=== PATIENT | male | born 1950 | race Caucasian/White ===

== ENCOUNTER → 2021-09-20 14:30 | Outpatient (BNVA) | payer SELFPAY | PROVIDERS: PCP Nurse Practitioner Family; Visit Provider Internal Medicine Cardiovascular Disease | DX: N18.9 Chronic kidney disease, unspecified (principal); I48.91 Unspecified atrial fibrillation; I50.33 Acute on chronic diastolic (congestive) heart failure; R53.1 Weakness; Z79.01 Long term (current) use of anticoagulants | CPT/HCPCS: 80053; 83880; 84443; 85025; 85610 ==

== ENCOUNTER → 2021-09-27 15:01 | Outpatient (BNVA) | payer SELFPAY | PROVIDERS: Visit Provider Internal Medicine Cardiovascular Disease | DX: I48.91 Unspecified atrial fibrillation (principal) | CPT/HCPCS: 85610 ==

== ENCOUNTER → 2021-10-18 11:01 | Outpatient (BNVA) | payer SELFPAY | PROVIDERS: Visit Provider Internal Medicine Cardiovascular Disease | DX: I48.91 Unspecified atrial fibrillation (principal) | CPT/HCPCS: 85610 ==

== ENCOUNTER → 2021-10-31 11:09 | Outpatient (BNVA) | payer SELFPAY | PROVIDERS: Visit Provider Internal Medicine Cardiovascular Disease | DX: I48.91 Unspecified atrial fibrillation (principal) | CPT/HCPCS: 85610 ==

== ENCOUNTER 2021-12-19 12:58 | Outpatient (CLI) | payer SELFPAY ==
[2021-12-19 13:27] LABS: Basophils % 0.1 %; Eosinophils # 0.1 10^3/uL (0.0-0.8); Eosinophils % 1.2 %; Hematocrit 48.2 % (42.0-52.0); Hemoglobin 16.5 g/dL (11.7-16.6); Lymphocytes # 1.9 10^3/uL (0.8-4.8); Lymphocytes % 28.4 %; Mean Corpuscular HGB Conc 34.2 g/dL (30.0-36.0); Mean Corpuscular Hemoglobin 30.4 pg (28.0-34.0); Mean Corpuscular Volume 88.8 fl (80-94); Mean Platelet Volume 10.8 fL (7.4-10.4); Monocytes # 0.8 10^3/uL (0.2-0.9); Monocytes % 11.7 %; Neutrophils # 3.95 10^3/uL (1.8-7.7); Neutrophils % 58.3 %; Nucleated Red Blood Cells % 0 %; Platelet Count 187 10^3/cmm (130-400); Red Blood Count 5.43 10^6/uL (4.1-5.3); Red Cell Distribution Width 13.3 % (12.1-15.1); White Blood Count 6.8 10^3/uL (4.0-10.0)
[2021-12-19 13:58] LABS: INR 2.56 (0.8-1.2)
[2021-12-19 14:10] LABS: Alanine Aminotransferase 24 U/L (0-41); Albumin Level 4.6 g/dL (3.5-5.2); Alkaline Phosphatase 83 IU/L (40-130); Aspartate Amino Transferase 23 U/L (0-40); Blood Urea Nitrogen 13 mg/dL (8-23); Calcium 9.6 mg/dL (8.5-10.5); Carbon Dioxide 24 mmol/L (22-29); Chloride 98 mmol/L (98-107); Chol HDL Ratio 3.74 mg/dL (1.0-5.00); Cholesterol 217 mg/dL (0-200); Globulin 3.4 g/dL (1.3-4.6); Glomerular Filtration Rate 111.5 mL/min (90-130); Glucose 100 mg/dL (65-115); HDL Cholesterol 58 mg/dL (60-100); LDL Cholesterol Calculated 129 mg/dL (50-129); LDL HDL Ratio 2.22 RATIO (0.00-3.22); Magnesium 1.9 mg/dL (1.7-2.3); Osmolality Calculated 278 mOsm/kg (285-295); Sodium 134 mmol/L (136-145); Total Bilirubin 0.8 mg/dL (0.15-1.2); Triglycerides 151 mg/dL (0-150)
[2021-12-19 14:11] LABS: Anion Gap 16.2 (5-19); Potassium 4.2 mmol/L (3.5-5.1)
[2021-12-19 14:20] LABS: NT Pro B Type Natriuretic Pept 45 pg/mL (0-125)
[2021-12-19 14:30] LABS: Digoxin 0.3 ng/mL (0.6-1.2); Troponin T (5th) Once 16 ng/L (0-15)
== END 2021-12-19 12:59 | disposition home or self-care (01) ==
LOC: LAB 13:00
PROVIDERS: Visit Provider Internal Medicine Cardiovascular Disease
DX: I48.91 Unspecified atrial fibrillation (principal); R06.02 Shortness of breath; R60.9 Edema, unspecified
CPT/HCPCS: 80053; 80061; 80162; 83735; 83880; 84484; 85025; 85610

== ENCOUNTER 2022-01-16 09:26 | Outpatient (CLI) | payer SELFPAY | END 2022-01-16 09:27 | disposition home or self-care (01) | LOC: LAB 09:28 | PROVIDERS: PCP Nurse Practitioner; Visit Provider Internal Medicine Cardiovascular Disease | DX: I48.91 Unspecified atrial fibrillation (principal); Z79.01 Long term (current) use of anticoagulants | CPT/HCPCS: 85610 ==

== ENCOUNTER → 2022-02-26 13:28 | Outpatient (BNVA) | payer SELFPAY | PROVIDERS: PCP Nurse Practitioner; Visit Provider Nurse Practitioner | DX: I48.91 Unspecified atrial fibrillation (principal) | CPT/HCPCS: 85610 ==

== ENCOUNTER → 2022-03-20 14:40 | Outpatient (BNVA) | payer MEDICAID, SELFPAY | PROVIDERS: PCP Nurse Practitioner; Visit Provider Nurse Practitioner | DX: I48.91 Unspecified atrial fibrillation (principal); Z79.01 Long term (current) use of anticoagulants | CPT/HCPCS: 85610 ==

== ENCOUNTER → 2022-03-27 13:05 | Outpatient (BNVA) | payer MEDICAID, SELFPAY | PROVIDERS: PCP Nurse Practitioner; Visit Provider Internal Medicine Cardiovascular Disease | DX: I48.91 Unspecified atrial fibrillation (principal) | CPT/HCPCS: 85610 ==

== ENCOUNTER 2022-03-29 14:11 | Outpatient (CLI) | payer MEDICAID, SELFPAY ==
--- NOTE | 2022-03-29 15:15 | USCV_ITS ---
Kyler Arciniega Age: 71 Gender: M : 1950 Exam Date: 03/29/2022 14:29 Ordering Phys: Magdi Palacios MD ([email or web address]) Technologist: ROSIE [place] [facility] [place] SOB AND PRE OP CLEARANCE BP: 126 / 73 HR: 66 Rhythm: Sinus Technical Quality: Technically difficult study MEASUREMENTS (Male / Female) Normal Values 2D ECHO LVOT Diameter 2.0 cm LV Ejection Fraction MOD 2C 39.2 % LV Ejection Fraction 2C AL 38.8 % LA Diameter 3.8 cm LA Width 2.9 cm LA Height 4.3 cm RA Width 3.0 cm RA Height 4.3 cm Aorta at Sinotubular Diameter 2.8 cm IVC Diameter 2.3 cm M-MODE Aortic Annulus Diameter 3.2 cm LA Ao Ratio MM 1.4 MV E Point Septal Separation 0.3 cm DOPPLER AV Peak Velocity 197.0 cm/s LVOT Peak Velocity 108.5 cm/s AV Area Cont Eq vti 2.1 cm squared AV Area Cont Eq pk 1.8 cm squared MV Area PHT 3.4 cm squared Mitral E to A Ratio 1.2 MV E' Velocity 43.5 cm/s Mitral E to MV E' Ratio 10.6 Mitral E to LV E' Lateral Ratio 10.3 Mitral E to LV E' Septal Ratio 10.9 TR Peak Velocity 257.8 cm/s TR Peak Gradient 26.6 mmHg TR Mean Velocity 174.0 cm/s TR Mean Gradient 14.2 mmHg TR Velocity Time Integral 62.3 cm TV Peak E Velocity 64.0 cm/s Right Atrial Pressure 3.0 mmHg Pulmonary Artery Systolic Pressu 29.6 mmHg PV Peak Velocity 65.0 cm/s RV Acceleration Time 0.1 s RV Ejection Time 0.4 s RV AcT/ET 0.4 FINDINGS Left Ventricle Normal left ventricular size and systolic function, EF 55 %. No regional wall motion abnormalities. Right Ventricle The right ventricle is normal in size and function. Right Atrium The right atrium is normal in size. Left Atrium The left atrium is normal in size. Mitral Valve Thickened mitral valve with moderate mitral annular calcification. Aortic Valve Thickened aortic valve. Tricuspid Valve Trace tricuspid valve regurgitation. Pulmonic Valve Pulmonic valve not well visualized. Pericardium Normal pericardium without effusion. Aorta Normal ascending aorta dimension. IVC Normal inferior vena cava. CONCLUSIONS Normal left ventricular size and systolic function, EF 55 %. No regional wall motion abnormalities. Thickened mitral valve with moderate mitral annular calcification. Trace tricuspid valve regurgitation. Thickened aortic valve. There is no pericardial effusion. There are no intracardiac masses. No similar previous studies are available for comparison Dr Magdi Palacios MD FAC (Electronically Signed) Final Date: 29 March 2022 17:04 S
== END 2022-03-29 14:12 | disposition home or self-care (01) ==
LOC: RAD 14:13
PROVIDERS: PCP Nurse Practitioner; Visit Provider Internal Medicine Cardiovascular Disease
DX: I48.91 Unspecified atrial fibrillation (principal); I10 Essential (primary) hypertension; R06.09 Other forms of dyspnea; I08.3 Combined rheumatic disorders of mitral, aortic and tricuspid valves
CPT/HCPCS: 93306

== ENCOUNTER 2022-04-05 06:34 | Day surgery (SDC) | payer MEDICAID, SELFPAY ==
[2022-04-04 14:13] VITALS: BMI 34.8
[2022-04-05] VITALS (7 sets, daily range): BP systolic 142–159; BP diastolic 70–98; PULSE 67–72; RESP 15–20; TEMP 36.1–36.5; O2SAT 95–98
--- NOTE | 2022-04-05 06:56 | W.PM.OPSFHP ---
Same Day Surgery H&P Indication for Procedure/HPI DATE OF PROCEDURE: April 05, 2022 CHIEF COMPLAINT/INDICATIONFOR SURGICAL PROCEDURE: Left inguinal hernia repair PREOP DIAGNOSIS: inguinal hernia PLANNED PROCEDURE: Operation Date: 04/05/22 08:10 Proposed Procedures p HERNIA-INGUINAL REPAIR OPEN WITH MESH 91956,K40.90(Not Applicable) - Chip Gee MD Medications/Allergies* Home Medications Medication Instructions Recorded Confirmed Type ascorbate calcium (vitamin C) 500 500 mg PO DAILY 09/20/21 04/04/22 History mg tablet cholecalciferol (vitamin D3) 25 25 mcg PO DAILY 09/20/21 04/04/22 History mcg (1,000 unit) capsule iodine (kelp) 0.15 mg tablet 150 mcg PO DAILY 09/20/21 04/04/22 History magnesium oxide 500 mg capsule 500 mg PO DAILY 09/20/21 04/04/22 History multivitamin 1 tab PO DAILY 09/20/21 04/04/22 History zinc 50 mg tablet 50 mg PO DAILY 09/20/21 04/04/22 History Allergies/Adverse Reactions Allergy/AdvReac Type Severity Reaction Status Date / Time No Known Allergies Allergy Verified 04/05/22 06:52 Pertinent History/Comorbid Conditions* Medical History (Updated 01/16/22 @ 10:12 by Chip Gee MD) Atrial fibrillation CHF (congestive heart failure) History of hypertension Surgical History (Updated 01/16/22 @ 10:10 by Chip Gee MD) History of hip surgery left hip Status post right inguinal hernia repair Family History (Updated 09/19/21 @ 17:39 by Gloria Pandya RN) CAD (coronary artery disease) Father, Onset Age: 85 [place] Cancer Grandfather Stroke Mother Denies family history of Diabetes Clotting disorder Dementia Chronic kidney disease (CKD) Suicide Anesthesia complication Bleeding disorder Lung disease Social History Smoking and tobacco status: unknown if ever smoked (cannabis use) Alcohol intake: current Alcohol intake frequency: few times a month Pertinent Exam Findings alert, oriented x 3 and regular rate & rhythm Recommendations Surgery/Procedure today Coding Level of Care Code Acute 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
--- NOTE | 2022-04-05 07:00 | ANES.PREANE2 ---
Pre-Anesthetic Assessment Height/Weight: Height 1.8 m Weight 113.398 kg Preop Diagnosis: inguinal hernia Operation Date: 04/05/22 08:10 Proposed Procedures p HERNIA-INGUINAL REPAIR OPEN WITH MESH 72045,K40.90(Not Applicable) - Chip Gee MD Familial anesthetic complications: None Was Beta Teresa taken within 24 hours: Yes Was Clonidine taken within 24 hours: N/A Last intake: 04/04 @ 2200 Social No alcohol and No tobacco Exam alert, oriented x 3, clear to auscultation bilaterally and regular rate & rhythm Airway Submandibular: within normal limits Mallampati: Class II Dentition: other Comments: Comments: Multiple missing upper and lower History/ROS No significant history except as noted Pulmonary None reported CV/HEM Congestive Heart Failure Hx Afib on warfarin last dose 03/31/22 None reported Hepatic None reported GI None reported Metabolic None reported Musc/skel None reported Neuropsych None reported Anesthetic Plan ASA status: 3 Anesthesia: General Medications/Allergies Home Medications Medication Instructions Recorded Confirmed Last Taken Type ascorbate calcium (vitamin C) 500 500 mg PO DAILY 09/20/21 04/05/22 04/04/22 History mg tablet cholecalciferol (vitamin D3) 25 25 mcg PO DAILY 09/20/21 04/05/22 04/04/22 History mcg (1,000 unit) capsule iodine (kelp) 0.15 mg tablet 150 mcg PO DAILY 09/20/21 04/05/22 03/29/22 History magnesium oxide 500 mg capsule 500 mg PO DAILY 09/20/21 04/05/22 04/05/22 06:00 History multivitamin 1 tab PO DAILY 09/20/21 04/05/22 04/04/22 History zinc 50 mg tablet 50 mg PO DAILY 09/20/21 04/05/22 04/04/22 History warfarin 5 mg tablet 5 mg PO DAILY #90 tabs 10/31/21 04/04/22 03/31/22 Rx metoprolol tartrate 25 mg tablet 25 mg PO BID #180 tabs 11/07/21 04/04/22 Unknown Rx furosemide 40 mg tablet (Lasix) 20 mg PO DAILY #90 tabs 12/20/21 04/05/22 04/04/22 Rx losartan 100 mg tablet 100 mg PO DAILY #90 tabs 03/20/22 04/05/22 04/04/22 Rx potassium chloride 20 mEq 20 meq PO DAILY #90 tabs 04/02/22 04/05/22 04/04/22 Rx tablet,extended release oxycodone-acetaminophen 5 mg-325 1 tab PO Q6H PRN pain #20 tabs 04/05/22 Unknown Rx mg tablet (Percocet) Allergies Allergy/AdvReac Type Severity Reaction Status Date / Time No Known Allergies Allergy Verified 04/05/22 06:52 PFSH Anesthesia Medical History Atrial fibrillation CHF (congestive heart failure) History of hypertension Surgical History History of hip surgery left hip Status post right inguinal hernia repair Family History Father CAD (coronary artery disease), Onset Age: 85 [place] Grandfather Cancer Mother Stroke Denies family history of Diabetes Clotting disorder Dementia Chronic kidney disease (CKD) Suicide Anesthesia complication Bleeding disorder Lung disease Social History Smoking and tobacco status: unknown if ever smoked (cannabis use) Alcohol intake: current Alcohol intake frequency: few times a month Data Anesthesia Cardiac Studies: Echocardiogram 03/29/22
[2022-04-05] MEDS: sodium chloride 0.9% 1,000 ML 30 ML IV (07:30)
[2022-04-05 07:31] LABS: Basophils % 0.5 %; Eosinophils # 0.1 10^3/uL (0.0-0.8); Eosinophils % 1.3 %; Hematocrit 45.6 % (42.0-52.0); Hemoglobin 15.5 g/dL (11.7-16.6); Lymphocytes # 1.6 10^3/uL (0.8-4.8); Lymphocytes % 26.1 %; Mean Corpuscular Hemoglobin 30.8 pg (28.0-34.0); Mean Corpuscular Volume 90.7 fl (80-94); Mean Platelet Volume 11.2 fL (7.4-10.4); Monocytes # 0.7 10^3/uL (0.2-0.9); Monocytes % 11.7 %; Neutrophils % 60.1 %; Nucleated Red Blood Cells % 0 %; Platelet Count 189 10^3/cmm (130-400); Red Blood Count 5.03 10^6/uL (4.1-5.3); Red Cell Distribution Width 12.9 % (12.1-15.1); White Blood Count 6.2 10^3/uL (4.0-10.0)
[2022-04-05] MEDS: ceFAZolin 2,000 MG in sodium chloride 0.9% (plus) 50 ML 100 MG IV (07:42)
[2022-04-05 07:52] LABS: INR 1.09 (0.8-1.2)
[2022-04-05 08:05] LABS: Anion Gap 14.5 (5-19); Blood Urea Nitrogen 13 mg/dL (8-23); Calcium 9.5 mg/dL (8.5-10.5); Carbon Dioxide 29 mmol/L (22-29); Chloride 101 mmol/L (98-107); Glomerular Filtration Rate 95.6 mL/min (90-130); Glucose 120 mg/dL (65-115); Osmolality Calculated 291 mOsm/kg (285-295); Potassium 4.5 mmol/L (3.5-5.1); Sodium 140 mmol/L (136-145)
[2022-04-05] MEDS: lidocaine 2% INJ 20 mL INJECTION (08:25)
--- NOTE | 2022-04-05 12:54 | ANE.PACU2 ---
Inpatient post-anesthesia follow up: Airway intact: Yes Vital signs: Temperature 97.0 F Pulse Rate 68 Respiratory Rate 18 Blood Pressure 155/98 Pulse Oximetry 96 Oxygen Delivery Me thod Room Air Oxygen Flow Rate 2 Fraction of Inspir ed Oxygen Hydration adequate: Yes Nausea and vomiting: No Pain level: 1 Mental status: Baseline
--- NOTE | 2022-04-06 12:15 | P.OP_ITS ---
Operative Report Date of procedure: April 06, 2022 Pre-op diagnosis: Incarcerated left inguinal hernia extending into the scrotum Post-op diagnosis: Incarcerated left inguinal hernia extending to the scrotum containing sigmoid colon Procedure done: Open repair of incarcerated left inguinal hernia containing sigmoid colon with Proloop mesh and plug Specimens removed/disposition: Hernia sac Surgeon: Chip Gee Anesthesia: General Condition: stable Disposition: PACU Procedure: The patient is taken to the operating room and intubated under general anesthesia after IV antibiotic had been administered. The abdomen and external genitalia was prepped and draped in a sterile manner. A 8 cm incision was made over the left inguinal canal using 15 blade, the subcutaneous tissue, Ismael's fascia divided using electrocautery until the external oblique aponeurosis was identified. Using a 15 blade, a small opening was made in the external oblique aponeurosis along the length of the fibers, this was grasped with hemostats and opened using Metzenbaum scissors medially to the external ring and laterally beyond the internal ring. The contents of inguinal canal were dissected free from the wall and a [place] drain was placed around it. The large hernia sac extended into the scrotum. The hernia sac was dissected from the scrotal wall along with the left testicle which was exteriorized.The cremasteric muscles were divided until the sac could be dissected free from the spermatic cord. The spermatic cord was dissected free from the hernia sac and the hernia sac was opened. The sigmoid colon was present within the hernia sac which was reduced into the abdominal cavity with great difficulty. The excess hernia sac was excised and sent to pathology. There was no direct hernia noted. A large plug was placed in the internal ring and sutured using 2-0 Prolene [id number] suture. A Proloop mesh was introduced and using 2-0 Prolene suture the medial edge of the mesh were sutured to the fascia overlying the pubic tubercle, and the suture was run to approximate the inferior edge of the mesh to the shelving edge of inguinal ligament to a point beyond the internal ring. Interrupted 2-0 Prolene suture was used to approximate the superior edge of the mesh to the internal oblique muscles and the 2 limbs of the mesh was sutured lateral to the internal ring and approximated to the internal oblique muscle. The wound was copiously irrigated with saline, good hemostasis noted and the external oblique aponeurosis was closed with running 2-0 Vicryl suture, Ismael's fascia approximated using running 3-0 Vicryl suture, and skin was closed using running subcuticular 4-0 Monocryl suture and Dermabond. 20 mL of 0.25% Marcaine was infiltrated around the incision. The patient was extubated and transferred recovery room in stable condition.
== END 2022-04-05 11:14 | disposition home or self-care (01) ==
PROVIDERS: Anesthesiology; PCP Nurse Practitioner; Visit Provider Surgery
PROC: (CPT 49507; principal; 2022-04-05 07:50)
DX: K40.30 Unilateral inguinal hernia, with obstruction, without gangrene, not specified as recurrent (principal); I48.91 Unspecified atrial fibrillation; Z79.01 Long term (current) use of anticoagulants; I50.9 Heart failure, unspecified
CPT/HCPCS: 49507; 80048; 85025; 85610; 88302; C1781; J1100; J1170; J2250; J2405; J2704; J2710; J3010; J3490; J7030

== ENCOUNTER → 2022-04-17 11:33 | Outpatient (BNVA) | payer SELFPAY | PROVIDERS: PCP Nurse Practitioner; Visit Provider Internal Medicine Cardiovascular Disease | DX: I48.91 Unspecified atrial fibrillation (principal) | CPT/HCPCS: 85610 ==

== ENCOUNTER → 2022-05-02 10:08 | Outpatient (BNVA) | payer SELFPAY | PROVIDERS: PCP Nurse Practitioner; Visit Provider Internal Medicine Cardiovascular Disease | DX: I48.91 Unspecified atrial fibrillation (principal) | CPT/HCPCS: 85610 ==

== ENCOUNTER → 2022-05-10 10:05 | Outpatient (BNVA) | payer SELFPAY | PROVIDERS: PCP Nurse Practitioner; Visit Provider Internal Medicine Cardiovascular Disease | DX: I48.91 Unspecified atrial fibrillation (principal) | CPT/HCPCS: 85610 ==

== ENCOUNTER → 2022-05-31 14:50 | Outpatient (BNVA) | payer MEDICAID, SELFPAY | PROVIDERS: PCP Nurse Practitioner; Visit Provider Surgery | DX: Z98.890 Other specified postprocedural states (principal); N50.89 Other specified disorders of the male genital organs; N43.3 Hydrocele, unspecified | CPT/HCPCS: 99024 ==

== ENCOUNTER → 2022-06-20 13:29 | Outpatient (BNVA) | payer MEDICAID, SELFPAY | PROVIDERS: PCP Nurse Practitioner; Visit Provider Urology | DX: N50.89 Other specified disorders of the male genital organs (principal); N43.3 Hydrocele, unspecified; N50.812 Left testicular pain | CPT/HCPCS: 81003; 99204 ==

== ENCOUNTER 2022-06-25 14:40 | Inpatient (IN) | payer MEDICARE, MEDICAID, SELFPAY ==
[2022-06-25] VITALS (17 sets, daily range): BP systolic 95–159; BP diastolic 63–97; PULSE 52–64; RESP 8–19; TEMP 36.1–36.7; O2SAT 93–100
--- NOTE | 2022-06-25 05:53 | P.HPUD_ITS ---
Surgery/Procedure H&P Update DATE OF PROCEDURE: June 25, 2022 DATE H&P PERFORMED: 06/20/22 H&P UPDATE INFORMATION: I have reviewed H&P completed within last 30 days, I have examined patient prior to procedure, Changes to prior documentation as noted here and [place] [facility] [place] indicated CHANGES TO PREVIOUS DOCUMENTATION: There is further breakdown on the anterior scrotal wall with some increased erythema around 2 areas of breakdown. I expect that this area is infected. We will plan on debridement. PREOP DIAGNOSIS: inguinal hernia PLANNED PROCEDURE: Operation Date: 06/25/22 09:15 Proposed Procedures p 64457, 42786 SCROTAL EXPLORATION, LEFT ORCHIECTOMY N43.3(Not Applicable) - Kenny Dykes MD s Orchiectomy(Left) - Kenny Dykes MD
[2022-06-25] MEDS: sodium chloride 0.9% 1,000 ML 30 ML IV (08:38)
[2022-06-25] MEDS: vancomycin 1,500 MG/300 ML PIGGYBACK 200 MG IV (08:49)
[2022-06-25 08:51] LABS: Basophils % 0.3 %; Eosinophils # 0.1 10^3/uL (0.0-0.8); Eosinophils % 1.5 %; Hemoglobin 12.1 g/dL (11.7-16.6); Lymphocytes # 1.4 10^3/uL (0.8-4.8); Lymphocytes % 20.8 %; Mean Corpuscular HGB Conc 32.7 g/dL (30.0-36.0); Mean Corpuscular Hemoglobin 28.6 pg (28.0-34.0); Mean Corpuscular Volume 87.5 fl (80-94); Mean Platelet Volume 10.8 fL (7.4-10.4); Monocytes # 0.7 10^3/uL (0.2-0.9); Monocytes % 10.5 %; Neutrophils # 4.36 10^3/uL (1.8-7.7); Neutrophils % 66.6 %; Nucleated Red Blood Cells % 0 %; Platelet Count 230 10^3/cmm (130-400); Red Blood Count 4.23 10^6/uL (4.1-5.3); Red Cell Distribution Width 13.5 % (12.1-15.1); White Blood Count 6.6 10^3/uL (4.0-10.0)
--- NOTE | 2022-06-25 08:55 | ANES.PREANE2 ---
Pre-Anesthetic Assessment Height/Weight: Height 1.8 m Weight 104.326 kg O2 Del Method 06/25/22 08:11 Preop Diagnosis: Postoperative hydrocele, ischemic left testicle Operation Date: 06/25/22 09:15 Proposed Procedures p 58803, 84989 SCROTAL EXPLORATION, LEFT ORCHIECTOMY N43.3(Not Applicable) - Kenny Dykes MD s Orchiectomy(Left) - Kenny Dykes MD Familial anesthetic complications: None Was Beta Teresa taken within 24 hours: Yes Was Clonidine taken within 24 hours: N/A Last intake: Intake Last Liquid Date 06/24/22 Last Liquid Time 19:00 Last Solid Date 06/24/22 Last Solid Time 13:00 Social No alcohol and No tobacco Exam alert, oriented x 3, clear to auscultation bilaterally and regular rate & rhythm Airway Mallampati: Class II Dentition: chipped and other (missing, poor dentition, discolored) CV/HEM Atrial Fibrillation, Congestive Heart Failure and Hypertension Anesthetic Plan ASA status: 3 Anesthesia: General Risk of > 500 ml blood loss (7ml/kg in children): No Medications/Allergies Home Medications Medication Instructions Recorded Confirmed Last Taken Type ascorbate calcium (vitamin C) 500 500 mg PO DAILY 09/20/21 06/25/22 06/24/22 History mg tablet cholecalciferol (vitamin D3) 25 25 mcg PO DAILY 09/20/21 06/25/22 06/24/22 History mcg (1,000 unit) capsule iodine (kelp) 0.15 mg tablet 150 mcg PO DAILY 09/20/21 06/25/22 06/09/22 History magnesium oxide 500 mg capsule 500 mg PO DAILY 09/20/21 06/25/22 06/24/22 History multivitamin 1 tab PO DAILY 09/20/21 06/25/22 06/24/22 History zinc 50 mg tablet 50 mg PO DAILY 09/20/21 06/22/22 04/04/22 History potassium chloride 20 mEq 20 meq PO DAILY #90 tabs 04/02/22 06/25/22 06/24/22 Rx tablet,extended release carvedilol 6.25 mg tablet 6.25 mg PO DIRECTED #270 tabs 05/02/22 06/25/22 06/25/22 06:00 Rx hydrocodone 10 mg-acetaminophen 1 tab PO Q8H PRN pain 4 days #15 06/20/22 06/25/22 06/24/22 20:00 Rx 325 mg tablet tabs sulfamethoxazole 800 1 tab PO BID #20 tabs 06/20/22 06/22/22 Unknown Rx mg-trimethoprim 160 mg tablet Allergies Allergy/AdvReac Type Severity Reaction Status Date / Time No Known Allergies Allergy Verified 06/20/22 14:03 Current Medications Generic Name Dose Route Start Last Admin Trade Name Freq PRN Reason Stop Dose Admin Vancomycin/PEG/NADA/Lysine/Water 1,500 mg in 300 mls @ 200 mls/hr 06/25/22 07:39 06/25/22 08:49 Vancocin IV 06/25/22 09:08 200 mls/hr [employer] Administration Protocol Sodium Chloride 1,000 mls @ 30 mls/hr 06/25/22 07:45 06/25/22 08:38 Sodium Chloride 0.9% IV 06/26/22 07:44 30 mls/hr .Q24H SARAH Administration PFSH Anesthesia Medical History (Updated 06/20/22 @ 16:50 by Kenny Dykes MD) Atrial fibrillation CHF (congestive heart failure) History of hypertension Surgical History History of hip surgery left hip Status post left inguinal hernia repair (04/05/22) Status post right inguinal hernia repair Family History Father CAD (coronary artery disease), Onset Age: 85 [place] Grandfather Cancer Mother Stroke Denies family history of Diabetes Clotting disorder Dementia Chronic kidney disease (CKD) Suicide Anesthesia complication Bleeding disorder Lung disease Social History (Updated 06/20/22 @ 14:09 by [place] Laura) Smoking and tobacco status: never smoked Alcohol intake: current Alcohol intake frequency: few times a month Current occupational status: retired History of recent travel: No Data Anesthesia : 06/25/22 08:25 06/25/22 08:25 Short CBC 06/25/22 Range/Units 08:25 WBC 6.6 (4.0-10.0) 10^3/uL Hgb 12.1 (11.7-16.6) g/dL Hct 37.0 L (42.0-52.0) % MCV 87.5 (80-94) fl Plt Count 230 (130-400) 10^3/cmm Neut % (Auto) 66.6 % Neut # (Auto) 4.36 (1.8-7.7) 10^3/uL Cardiac Studies: Echocardiogram 03/29/22
--- NOTE | 2022-06-25 08:59 | ECG_ITS ---
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 Measurements Intervals [place] Rate: 56 P: 58 CA: 210 QRS: -7 QRSD: 87 T: 10 QT: 429 QTc: 417 Interpretive Statements SINUS BRADYCARDIA WITH FIRST DEGREE AV BLOCK LOW QRS VOLTAGE IN PRECORDIAL LEADS [QRS DEFLECTION < 1.0 mV IN CHEST LEADS] No previous ECG available for comparison Electronically Signed On 06-25-2022 17:24:22 CDT by Louie Del Real M.D. [id number]
[2022-06-25 09:02] LABS: Chloride 99 mmol/L (98-107); Potassium 5.2 mmol/L (3.5-5.1); Sodium 137 mmol/L (136-145)
[2022-06-25 09:18] LABS: Anion Gap 16.2 (5-19); Blood Urea Nitrogen 8 mg/dL (8-23); Calcium 9.7 mg/dL (8.5-10.5); Carbon Dioxide 25 mmol/L (22-29); Glomerular Filtration Rate 95.6 mL/min (90-130); Glucose 94 mg/dL (65-115); Osmolality Calculated 278 mOsm/kg (285-295)
--- NOTE | 2022-06-25 11:45 | P.OP_ITS ---
Operative Report Date of procedure: June 25, 2022 Pre-op diagnosis: Postoperative hydrocele, ischemic left testicle Post-op diagnosis: Postoperative hydrocele, ischemic left testicle Procedure done: 1. Scrotal exploration excision of hydrocele/hematocele 2. Left orchiectomy, scrotal approach Implants: Tran catheter Specimens removed/disposition: 1. Inflamed tunica vaginalis 2. Left testicle Pathology: Same Wound cultures Surgeon: Donis Estimated blood loss: Less than 100 cc Urine output: Not measured Complications: None Findings: Anesthesia: General LMA Condition: Stable Disposition: PACU then to floor Intraoperative findings: * Full-thickness erosion on anterior scrotal wall * Necrotic left testicle * Hematocele/hydrocele with severe necrotic debris * Scrotum left open and packed we will plan for dressing change under anesthesia tomorrow Brief History: Kyler is a very pleasant 71-year-old white male who I evaluated last week for the first time for persistently swollen and painful left hemiscrotum with some breakdown of the anterior skin. He is status post hernia repair which was initially uneventful but developed immediate postoperative hydrocele that was felt likely to spontaneous resolve but he did not. More recently has had increased pain of unclear etiology and some breakdown of the skin anteriorly. Ultrasound confirmed a large hydrocele, multiple pockets of fluid within the tissue, and a very abnormal left testicle suspicious for necrosis. It was r ecommended he undergo exploration, debridement, likely left orchiectomy. Procedure: After routine preoperative evaluation examination and obtaining of informed consent he was taken to the operating room on 06/25/2022 where general anesthesia was administered with the after appropriate timeout was performed, SCDs confirmed to be functioning, preoperative antibiotics administered, beta- estefani protocol confirmed. Prepped and draped in the usual sterile fashion in supine position. The scrotum was carefully examined. There were 3 areas of skin breakdown with necrotic looking tissue emanating. There was some fluid expressed but it was not a lot. A scrotal incision was made below the necrotic midline skin and taken down to the more dependent portion of the scrotum. The incision was deepened into the deeper tissues with electrocautery. There was clear that there was a tremendous amount of inflammatory changes. There was a distinct layer of thickened inflammatory tissue that was felt to be probably most likely inflamed tunica vaginalis. A 14-gauge Angiocath was inserted with cloudy fluid returned. The tunica vaginalis was opened and a large amount of foul cloudy dark fluid was drained. Finger dissection revealed a large amount of necrotic tissue and chunks. The finger was passed vertically along the skin edge and this communic ated with the open wounds and therefore the incision was extended and the entire aspect of the skin involved was excised. A large amount of necrotic debris was then debrided from the internal aspect of the tunica vaginalis. It was not readily clear initially where the testicle was. A large portion of the severely inflamed tunica vaginalis was removed first by blunt dissection off of the scrotal wall and then the electrocautery excision. In this portion of the diagnosis the left testicle was identified adherent to the left lateral aspect of the scrotal wall. Dissection was conducted down to the testicle and it was clear that it was necrotic. Care was made in dissecting the testicle off the internal aspect of the scrotal wall/tunica vaginalis. The cord was eventually identified and was found to be thrombosed. A large clamp was passed onto the cord and the cord distal to that was then divided with electrocautery and a heavy tie was placed. There was no bleeding. There was a little bit of collateral oozing from the cremasteric muscles it appeared but nothing from the vasculature involving the cord. Additional amount of inflamed tunica vaginalis was then excised. The wound was debrided internally and all the necrotic tissue that was identified was cleared with picking with forceps, wiping with Ray-Kike, using a rongeur. Finger dissection was conducted up into the most superior aspect of this along the cord and there was no further fluid collections. Hemostasis was visually confirmed. The wound was copiously irrigated with normal saline, approximately 3 L. Hemostasis was visually confirmed and a dry Curlex was unraveled and passed into the large cavity. A single stitch of subcutaneous tissue apposed in the midline was performed to maintain dressing in place. Moistened gauze were placed on the skin edges and then ABD pads on top. Scrotal support was applied He was awakened in the operating room and returned to cover him in stable condition. Tolerated procedure well without complication. PLANS: 1. Admit to inpatient status with anticipation of first wound dressing change under anesthesia tomorrow.
[2022-06-25] MEDS: fentaNYL 50 mcg/mL INJ 2mL IVP (12:10)
[2022-06-25] MEDS: ketorolac 30 mg/mL INJ 15 MG IVP (13:19)
--- NOTE | 2022-06-25 15:02 | ANE.PACU2 ---
Inpatient post-anesthesia follow up: Airway intact: Yes Vital signs: Temperature 97.9 F Pulse Rate 56 Respiratory Rate 16 Blood Pressure 120/76 Pulse Oximetry 95 Oxygen Delivery Me thod Room Air Oxygen Flow Rate 6 Fraction of Inspir ed Oxygen Hydration adequate: Yes Nausea and vomiting: No Pain level: 1 Mental status: Baseline
--- NOTE | 2022-06-25 15:25 | SUR.PHASEI ---
patient transported to [facility], awake and alert. patient on room air. patient dressing in place, moderate drainage, same from transfer from pacu. patient iniguez in place and draining. patient amb[facility] floor bed. floor nurse in room on arrival.
[2022-06-25] MEDS: dextrose 5%-ns + KCl 20 20 MEQ/1,000 ML BAG 50 MEQ IV (15:41)
[2022-06-25] MEDS: sulfamethoxazole-trimeth DS 160-800 mg Tablet 1 TAB PO (17:25)
[2022-06-25] MEDS: docusate sodium 100 mg Capsule PO (17:25)
[2022-06-25] MEDS: HYDROcodone-acetaminophen 10-325 mg Tablet 1 TAB PO (21:03)
[2022-06-25] MEDS: carvedilol 6.25 mg Tablet PO (21:04)
[2022-06-26] VITALS (18 sets, daily range): BP systolic 94–176; BP diastolic 65–86; PULSE 50–72; RESP 14–22; TEMP 36.2–36.6; O2SAT 91–97
[2022-06-26 06:26] LABS: Basophils % 0.1 %; Eosinophils % 0.1 %; Hemoglobin 10.9 g/dL (11.7-16.6); Lymphocytes # 1.1 10^3/uL (0.8-4.8); Lymphocytes % 10.5 %; Mean Corpuscular HGB Conc 32.1 g/dL (30.0-36.0); Mean Corpuscular Hemoglobin 27.9 pg (28.0-34.0); Mean Platelet Volume 11.1 fL (7.4-10.4); Monocytes # 0.8 10^3/uL (0.2-0.9); Neutrophils % 81.7 %; Nucleated Red Blood Cells % 0 %; Platelet Count 220 10^3/cmm (130-400); Red Blood Count 3.91 10^6/uL (4.1-5.3); Red Cell Distribution Width 13.3 % (12.1-15.1); White Blood Count 10.8 10^3/uL (4.0-10.0)
[2022-06-26 06:40] LABS: Anion Gap 13.5 (5-19); Blood Urea Nitrogen 7 mg/dL (8-23); Carbon Dioxide 23 mmol/L (22-29); Chloride 100 mmol/L (98-107); Glomerular Filtration Rate 111.5 mL/min (90-130); Glucose 133 mg/dL (65-115); Osmolality Calculated 274 mOsm/kg (285-295); Potassium 4.5 mmol/L (3.5-5.1); Sodium 132 mmol/L (136-145)
[2022-06-26] MEDS: carvedilol 6.25 mg Tablet PO ×2 (09:12→21:06)
[2022-06-26] MEDS: sulfamethoxazole-trimeth DS 160-800 mg Tablet 1 TAB PO ×2 (09:12→18:14)
[2022-06-26] MEDS: alum-mag-hydroxide-sime 30 mL UDC PO (09:13)
[2022-06-26] MEDS: sodium chloride 0.9% 1,000 ML 30 ML IV (11:11)
--- NOTE | 2022-06-26 11:25 | P.ANESUD_ITS ---
Pre-Anesthetic Update Pre-Anesthetic Assessment: Date of Surgery/Procedure: 06/26/22 Preop Jackie gnosis: Postoperative hydrocele, ischemic left testicle Proposed Procedure: Operation Date: 06/25/22 09:15 Proposed Procedures p 99057, 47776 SCROTAL EXPLORATION, LEFT ORCHIECTOMY N43.3(Not Applicable) - Kenny Dykes MD s Orchiectomy(Left) - Kenny Dykes MD Operation Date: 06/26/22 11:45 Proposed Procedures p Scrotal Debridement(Not Applicable) - Kenny Dykes MD Any changes to Pre-Anesthetic Assessment?: No Last Intake: Intake Last Liquid Date 06/25/22 Last Liquid Time 18:00 Last Solid Date 06/24/22 Last Solid Time 12:00 Labs Last 48hrs: Short CBC 06/25/22 06/26/22 Range/Units 08:25 05:05 WBC 6.6 10.8 H (4.0-10.0) 10^3/ uL Hgb 12.1 10.9 L (11.7-16.6) g/dL Hct 37.0 L 34.0 L (42.0-52.0) % MCV 87.5 87.0 (80-94) fl Plt Count 230 220 (130-400) 10^3/c mm Neut % (Auto) 66.6 81.7 % Neut # (Auto) 4.36 8.80 H (1.8-7.7) 10^3/u L BMP 06/25/22 06/26/22 08:25 05:05 Sodium 137 132 L Potassium 5.2 H 4.5 Chloride 99 100 Carbon Dioxide 25 23 BUN 8 7 L Creatinine 0.8 0.7 Glucose 94 133 H Calcium 9.7 9.0 Vitals: Temperature 97.9 F 06/26/22 10:59 Temperature Source Temporal Artery S can 06/26/22 10:59 Pulse Rate 59 L 06/26/22 10:59 Pulse Rhythm 06/25/22 15:04 Pulse Strength 3+ Normal 06/25/22 08:11 Respiratory Rate 18 06/26/22 10:59 Respiratory Effort Non-Labored 06/25/22 21:00 Respiratory Depth Normal 06/25/22 21:00 Respiratory Patter n 06/25/22 21:00 Blood Pressure 145/73 06/26/22 10:59 Blood Pressure Danica n 97 10/18/22 10:59 Blood Pressure Pos ition Semi Fowlers 06/26/22 00:22 Pulse Oximetry 96 06/26/22 10:59 Oxygen Delivery Me thod 06/26/22 10:59 Oxygen Flow Rate 6 06/25/22 11:50 Exam: Pre-Anes Outpt Exam: alert, oriented x 3, clear to auscultation bilaterally and regular rate & rhythm Cardiac Studies: Echocardiogram 03/29/22
--- NOTE | 2022-06-26 12:54 | P.OP_ITS ---
Operative Report Date of procedure: June 26, 2022 Pre-op diagnosis: Open scrotal wound Post-op diagnosis: Open scrotal wound Procedure done: 1. Incision and debridement scrotal wound 2. Partial closure scrotal wound Implants: Alessio drain 19 [place] dependent portion of scrotum Pathology: None Surgeon: Donis Estimated blood loss: <10 cc Urine output: Not measured Complications: None Findings: Anesthesia: MAC Condition: Stable Disposition: PACU Intraoperative findings: * Healthy appearing tissue in the wound. No active bleeding. Small amount of necrotic tissue debrided. No purulence or foul smell. * Alessio drain placed in the most dependent portion of the wound * Loose closure via approximation of lateral medial aspect of the wounds. * Loose closure of the skin with packing in between nylon sutures Brief History: Kyler is postop day #1 scrotal exploration, left orchiectomy, excision of necrotic tissue and hydrocele excision. Gram stain of fluid showed few bacteria. Cultures are pending. 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 The testicle had become ischemic and necrotic. The wound was packed and is brought back today for reexamination, debridement, and partial closure Procedure: After routine preoperative evaluation examination and obtaining of informed consent he was taken to the operating suite on 06/26/2022 where general anesthesia was administered without difficulty. The old dressings were removed and the wound inspected. There is no foul odor. Minimal discharge. Serosanguineous fluid on the dressings. The wound edges looked healthy and clean. Prepped and draped in usual sterile fashion in supine position paying careful attention to avoiding pressure points. There was a small amount of necrotic tissue that was debrided. There was no active bleeding. Extending to the superior aspect along the cord. Sequential approximation of deep scrotal tissues lateral to medial was then performed with interrupted horizontal mattress sutures. The edges were loosely applied with no watertight closure. This was continued up until the immediate subcutaneous tissues. Approximately 5 interrupted nylon sutures were used to approximate the skin with about 1.5 cm between the sutures in order to allow packing. Plain gauze packing was then packed individually between the sutures. The drain was placed to bulb suction and was sutured into place. There was no active bleeding. A moist dressing was applied on top of the external packing. An ABD pad was placed over the moist dressing. Scrotal support was then placed. Tran catheter was replaced sterilely. He tolerated procedure well without complication and was awakened in the operating room and returned to the PACU in stable condition. PLANS: 1. Begin loose superficial packing dressing changes tomorrow 2. Cover with vancomycin 3. Continue bulb suction drainage.
[2022-06-26] MEDS: fentaNYL 50 mcg/mL INJ 2mL IVP (13:11)
--- NOTE | 2022-06-26 14:30 | ANE.PACU2 ---
Inpatient post-anesthesia follow up: Airway intact: Yes Vital signs: Temperature 97.3 F Pulse Rate 50 Respiratory Rate 17 Blood Pressure 137/75 Pulse Oximetry 95 Oxygen Delivery Me thod Room Air Oxygen Flow Rate 6 Fraction of Inspir ed Oxygen Hydration adequate: Yes Nausea and vomiting: No Pain level: 1 Mental status: Baseline
[2022-06-26] MEDS: HYDROcodone-acetaminophen 10-325 mg Tablet 1 TAB PO (15:59)
[2022-06-26] MEDS: docusate sodium 100 mg Capsule PO (18:14)
[2022-06-26] MEDS: vancomycin 1,500 MG/300 ML PIGGYBACK 200 MG IV (21:07)
[2022-06-27] VITALS: BP 124/74; PULSE 61; RESP 20; TEMP 36.2; O2SAT 97
[2022-06-27 01:00] VITALS: BP 124/74; PULSE 61; O2SAT 97
[2022-06-27 04:00] VITALS: BP 133/78; PULSE 62; RESP 18; TEMP 36.2; O2SAT 96
[2022-06-27] MEDS: carvedilol 6.25 mg Tablet PO ×2 (09:45→20:53)
[2022-06-27] MEDS: docusate sodium 100 mg Capsule PO ×2 (09:47→17:42)
[2022-06-27] MEDS: sulfamethoxazole-trimeth DS 160-800 mg Tablet 1 TAB PO ×2 (09:47→17:42)
[2022-06-27] MEDS: vancomycin 1,500 MG/300 ML PIGGYBACK 200 MG IV ×2 (10:23→22:53)
[2022-06-27] MEDS: dextrose 5%-ns + KCl 20 20 MEQ/1,000 ML BAG 50 MEQ IV (10:23)
--- NOTE | 2022-06-27 10:25 | PC.NURSE ---
Patient's IV was leaking. Notified Dr. Dykes of patient refusing to have one. Dr. Dykes stated the patient needed to have his vanc ran. This nurse explained to patient what Dr. Dykes had stated. IV was successfully placed.
--- NOTE | 2022-06-27 10:29 | PC.CHAP ---
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 axle polisher visit [] Patient/Family/Request visit [] Outpatient visit [] Follow-up visit [] Physician referral [] Code/Alert [x] Routine visit [] Staff referral [] Actively dying [] Patient sleeping [] Family support [] [] Out of room [] Palliative care [] [] Receiving care in room [] Pre-surgical visit [] Trauma [] Long length of stay [] ICU visit [] Other: Relational/Emotional Strength [] Patient feels connected with others/family/visitors/staff [] Distress [] Loneliness/isolation [] Abandonment Spirituality of Patient [x] Person of Antonieta [] Attends Hoahaoism of their Antoni[place] [x] Believes in Prayer [] Reads Bible or Hinduism materials [] There are Spiritual issues to be addressed Film Technician Interventions [x] Prayer [] Active listening [] Non-anxious presence [] Spiritual/emotional support [] Crisis/trauma care [] Spiritual counseling [] Bereavement support [] Provided bereavement packet [] Provided Bible/devotional materials [] Provided toy/stuffed animal, coloring book to patient or family member [] Provided Communion [] Anointing/[place] [] Salvation [x] Completed spiritual assessment [] Other: Impact on Illness or Injury [] Angry [] Fearful [] Anxious [] Often cries [] Exhaustion [] Unable to work [] Unable to attend islam [] Unable to walk/stand [] Unable to read [] Unable to drive [] Unable to eat/drink [] Unable to sleep [] Unable to be with family [] Patient intubated [] Other: Summary Time spent with patient 5 min
[2022-06-27 12:00] VITALS: BP 128/77; PULSE 62; RESP 16; TEMP 36.3; O2SAT 94
[2022-06-27] MEDS: HYDROcodone-acetaminophen 10-325 mg Tablet 1 TAB PO ×2 (13:58→22:51)
--- NOTE | 2022-06-27 14:51 | PM.PN ---
Subjective Subjective: Urology postop day #1 partial wound closure Vancomycin day #3 No fever or chills. Decreased pain. Would like the catheter out. Appetite okay. No chest pain shortness of breath nausea or vomiting. Tran catheter removed Wick dressings are moist without foul odor or purulence. Slightly advanced. The drain is producing serosanguineous fluid. Small volumes Vitals/I&O/Wt Last Vital Signs Temp 97.4 F L 06/27/22 12:00 Pulse 62 06/27/22 12:00 Resp 16 06/27/22 12:00 BP 128/77 06/27/22 12:00 Pulse Ox 94 06/27/22 12:00 O2 Del Method 06/27/22 12:00 O2 Flow Rate 6 06/26/22 12:54 06/26/22 06/27/22 06/27/22 22:59 06:59 14:59 Intake Total 240 / 1240 300 / 1540 240 / 240 Output Total 970 / 975 1025 / 2000 15 Balance -730 / 265 -725 / -460 225 / 225 Physical Exam Narrative: Alert oriented no acute distress No labored respiration audible wheezes Regular rate and rhythm Abdomen is soft nontender no palpable masses. Scrotum looks healthy. There is no foul odor or drainage. 4 x 4's placed over the wick drains were moist. No significant tenderness. Catheter removed. Urine was clear. No abnormal bruising or bleeding. Urinary Catheter Management: Tran Latex Free: Cath Placed During This Visit: yes Reason for Continuing Indwelling Catheter: Perioperative Use in Selected Surgeries Urinary Catheter Date of Insertion: 06/26/22 Urinary Catheter Time of Insertion: 12:41 Data : 06/26/22 05:05 06/26/22 05:05 Micro: Microbiology 06/25/22 10:30 Gram Stain - Final Scrotum Anaerobic Culture - Preliminary A&P Assessment and plan (1) Hydrocele in adult: (2) Scrotal swelling: (3) Testicular necrosis: Plan 1. Remove Tran catheter 2. Continue vancomycin 3. Wick drains advanced slightly today 4. Consider discharge tomorrow. Attestations Medical Necessity Statement*: Utilizing IV antibiotics, wound care, for fairly high risk wound. Coding Level of Care Code Acute Human Resources Advisor for [facility] Diagnoses Hydrocele in adult N43.3 Scrotal swelling N50.89 Testicular necrosis N50.89
[2022-06-27 16:00] VITALS: BP 144/79; PULSE 61; RESP 16; TEMP 36.3; O2SAT 93
[2022-06-27 20:00] VITALS: BP 138/72; PULSE 56; RESP 17; TEMP 36.4; O2SAT 95
[2022-06-27 20:34] LABS: Vancomycin Trough 14.9 ug/mL (10-15)
[2022-06-28] VITALS: BP 130/75; PULSE 55; RESP 22; O2SAT 93
[2022-06-28 04:00] VITALS: BP 113/69; PULSE 64; RESP 15; TEMP 36.4; O2SAT 95
[2022-06-28 07:29] VITALS: BP 180/89; PULSE 53; RESP 18; O2SAT 94
[2022-06-28 07:44] VITALS: BP 180/89; PULSE 53; RESP 18; TEMP 36.4; O2SAT 94
[2022-06-28] MEDS: carvedilol 6.25 mg Tablet PO (09:52)
[2022-06-28] MEDS: docusate sodium 100 mg Capsule PO (09:53)
[2022-06-28] MEDS: sulfamethoxazole-trimeth DS 160-800 mg Tablet 1 TAB PO (09:53)
[2022-06-28] MEDS: vancomycin 1,500 MG/300 ML PIGGYBACK 200 MG IV (09:54)
--- NOTE | 2022-06-28 11:57 | PC.SOCIAL ---
IMM Update pg 2 of IMM updated and reviewed w/ patient. Copy provided and copy dated, initialed and placed in chart.
--- NOTE | 2022-06-28 12:22 | PM.DCS ---
Discharge Providers Date of Admission: 06/25/22 14:40 Date of Discharge: June 28, 2022 Attending Provider at Admission: Kenny Dykes MD Attending Provider at Discharge: Kenny Dykes MD Primary Care Provider: Sloane Barnes APN Diagnoses at Discharge Discharge Diagnosis (1) Hydrocele in adult: Status: Chronic (2) Scrotal swelling: Status: Acute (3) Testicular necrosis: Status: Acute Reason for Visit Reason for Visit: hydrocele, unspecified Brief History: Jeffrey is a very pleasant 71-year-old white male who presented to [facility] for evaluation of scrotal swelling persistent following left inguinal hernia repair approximately 3 months ago. Began to have some breakdown of the skin anteriorly. Ultrasound showed a very complex fluid collection with what appeared to be necrosis of the left testicle. He was admitted for scrotal exploration. Hospital Course Hospital Course Was taken to the operating room on the day of the admission and was found to have a very large amount of cloudy fluid with multiple areas of necrotic tissue within the hydrocele. A good deal of the tunica vaginalis was excised. A large amount of necrotic tissue is debrided. The left testicle was found to be necrosing from thrombosis of the spermatic cord. On postop day #1 he was taken back to the operating room for further debridement and irrigation. The wound was partially closed over a drain and the skin edges were loosely approximated. Was maintained on vancomycin throughout his hospital stay. Wound was healthy at discharge. He had not packing between the skin sutures that was removed on day of discharge. Drain was removed on day of discharge as well. Pathology showed necrotic left testicle. Intraoperative wound culture was negative. Remained afebrile. No foul drainage. He did well. Discharged in stable condition with the following recommendations: Continue Septra DS for least 2 weeks Follow-up in clinic in about a week but sooner if he is having evidence of increasing infectious concerns. Physical Exam Narrative: Alert oriented no acute distress very pleasant cooperative throughout exam HEENT: Atraumatic normocephalic Respiratory: Nonlabored respiration Abdomen: Soft nontender, nondistended : Wound looks healthy. No foul drainage. Dressings removed. Drain removed. Extremity: Chronic venous stasis changes, stable Urinary Catheter Management: Tran Latex Free: Cath Placed During This Visit: yes Reason for Continuing Indwelling Catheter: Perioperative Use in Selected Surgeries Urinary Catheter Date of Insertion: 06/26/22 Urinary Catheter Time of Insertion: 12:41 Discharge Data Studies Completed and Pending Completed Studies During Hospitalization Category Date Time Status Pathology: Surgical [PTH] Routine Pth 06/25/22 11:19 Completed Pending at discharge Category Date Time Status Anaerobic Culture Routine Lab 06/25/22 10:30 Results Wound Culture and Gram Stain Routine Lab 06/25/22 10:30 Results Laboratory Results WBC 10.8 10^3/uL (4.0-10.0) H 06/26/22 05:05 RBC 3.91 10^6/uL (4.1-5.3) L 06/26/22 05:05 Hgb 10.9 g/dL (11.7-16.6) L 06/26/22 05:05 Hct 34.0 % (42.0-52.0) L 06/26/22 05:05 MCV 87.0 fl (80-94) 06/26/22 05:05 MCH 27.9 pg (28.0-34.0) L 06/26/22 05:05 MCHC 32.1 g/dL (30.0-36.0) 06/26/22 05:05 RDW 13.3 % (12.1-15.1) 06/26/22 05:05 Plt Count 220 10^3/cmm (130-400) 06/26/22 05:05 MPV 11.1 fL (7.4-10.4) H 06/26/22 05:05 Neut % (Auto) 81.7 % 06/26/22 05:05 Lymph % (Auto) 10.5 % 06/26/22 05:05 [place] % (Auto) 7.0 % 06/26/22 05:05 Eos % (Auto) 0.1 % 06/26/22 05:05 Baso % (Auto) 0.1 % 06/26/22 05:05 Neut # (Auto) 8.80 10^3/uL (1.8-7.7) H 06/26/22 05:05 Lymph # (Auto) 1.1 10^3/uL (0.8-4.8) 06/26/22 05:05 [place] # (Auto) 0.8 10^3/uL (0.2-0.9) 06/26/22 05:05 Eos # (Auto) 0.0 10^3/uL (0.0-0.8) 06/26/22 05:05 Baso # (Auto) 0.0 10^3/uL (0.0-0.1) 06/26/22 05:05 Nucleated RBC % (auto) 0 % 06/26/22 05:05 Nucleated RBCs # 0.0 /100WBC 06/26/22 05:05 Sodium 132 mmol/L (136-145) L 06/26/22 05:05 Potassium 4.5 mmol/L (3.5-5.1) 06/26/22 05:05 Chloride 100 mmol/L (98-107) 06/26/22 05:05 Carbon Dioxide 23 mmol/L (22-29) 06/26/22 05:05 Anion Gap 13.5 (5-19) 06/26/22 05:05 BUN 7 mg/dL (8-23) L 06/26/22 05:05 Creatinine 0.7 mg/dL (0.7-1.2) 06/26/22 05:05 GFR Calculation 111.5 mL/min (90-130) 06/26/22 05:05 Glucose 133 mg/dL (65-115) H 06/26/22 05:05 Calculated Osmolality 274 mOsm/kg (285-295) L 06/26/22 05:05 Calcium 9.0 mg/dL (8.5-10.5) 06/26/22 05:05 Vancomycin Trough 14.9 ug/mL (10-15) 06/27/22 20:00 Vitals Last Vital Signs Temp 97.6 F 06/28/22 07:44 Pulse 53 L 06/28/22 07:44 Resp 18 06/28/22 07:44 BP 180/89 06/28/22 07:44 Pulse Ox 94 06/28/22 07:44 O2 Del Method 06/28/22 04:00 O2 Flow Rate 6 06/26/22 12:54 Discharge Plan Discharge Patient Disposition: Home Condition: Stable Prescriptions: New sulfamethoxazole-trimethoprim 800-160 mg tablet 1 tab PO BID Qty: 28 3RF Continued multivitamin Tablet 1 tab PO DAILY cholecalciferol (vitamin D3) 25 mcg (1,000 unit) capsule 25 mcg PO DAILY zinc 50 mg tablet 50 mg PO DAILY ascorbate calcium (vitamin C) 500 mg tablet 500 mg PO DAILY iodine (kelp) 0.15 mg tablet 150 mcg PO DAILY magnesium oxide 500 mg capsule 500 mg PO DAILY hydrocodone-acetaminophen 10-325 mg tablet 1 tab PO Q8H PRN (Reason: pain) 4 Days Qty: 15 0RF potassium chloride 20 mEq tablet extended release 20 meq PO DAILY Qty: 90 3RF carvedilol 6.25 mg tablet 6.25 mg PO DIRECTED Qty: 270 3RF Rx Instructions: Dose Increased: Take 2 tabs every morning and 1 tab every evening. Discontinued sulfamethoxazole-trimethoprim 800-160 mg tablet 1 tab PO BID Qty: 20 1RF Discharge Orders: Discharge Order (Routine); Ordered 06/28/22 Ordered By: Kenny Dykes Referrals: Kenny Dykes MD [Physician] - 07/04/22 (Wound check.) Discharge Diet: Usual diet Discharge Activity: Increase activity as tolerated Patient Instructions: Opioid Safety Activity Restrictions/Additional Instructions: 1. Keep a moist dressing on the anterior incision. 2. Cover with a dry dressing and continue scrotal support. 3. We will see you back in the office in about a week. If you have concerns or questions prior to that time the hospital stone processing machine operator can reach me after hours. 4. Return to the emergency department if you have systemic signs of infection such as fever, chills etc. 5. A prescription for SEPTRA DS has been sent to the [facility] pharmacy in [place]. Discharge Attestations Time Spent in Discharge Care*: greater than 30 min Quality Metrics Clinical Quality Measures [ No reported AMI, CVA or VTE this stay] Coding Level of Care Code Acute Chg FW DC note Diagnoses Hydrocele in adult N43.3 Scrotal swelling N50.89 Testicular necrosis N50.89
[2022-06-28 12:34] VITALS: BP 180/89; PULSE 53; RESP 18; TEMP 36.4; O2SAT 94
== END 2022-06-28 13:20 | disposition home or self-care (01) | DRG 712 ==
LOC: MEDSURG 14:41
PROVIDERS: Anesthesiology; Admitting Provider Urology; PCP Nurse Practitioner; Visit Provider Urology
PROC: 0VTB0ZZ Resection of Left Testis, Open Approach (ICD-10-PCS; CPT 55110; principal; 2022-06-25 09:05)
PROC: 0VTB0ZZ Resection of Left Testis, Open Approach (ICD-10-PCS; 2022-06-25 09:05)
PROC: 0V950ZX Drainage of Scrotum, Open Approach, Diagnostic (ICD-10-PCS; principal; 2022-06-26 11:45)
DX: N43.1 Infected hydrocele (principal); N50.89 Other specified disorders of the male genital organs; N49.1 Inflammatory disorders of spermatic cord, tunica vaginalis and vas deferens; N50.1 Vascular disorders of male genital organs
CPT/HCPCS: 36415; 51702; 80048; 80202; 85025; 87070; 87075; 87077; 87186; 87205; 88304; 88307; 93005; J1100; J1885; J2405; J2704; J3010; J3370; J3490; J7030

== ENCOUNTER 2022-06-26 | Day surgery (SDC) | payer MEDICAID, SELFPAY | END 2022-06-26 23:00 | disposition home or self-care (01) | LOC: OR 07-02 09:30 | PROVIDERS: PCP Nurse Practitioner; Visit Provider Urology | DX: Z01.818 Encounter for other preprocedural examination (principal) | CPT/HCPCS: J2704; J3010 ==

== ENCOUNTER → 2022-07-04 12:49 | Outpatient (BNVA) | payer MEDICAID, SELFPAY | PROVIDERS: PCP Nurse Practitioner; Visit Provider Urology | DX: N43.3 Hydrocele, unspecified (principal); Z98.890 Other specified postprocedural states; N50.89 Other specified disorders of the male genital organs | CPT/HCPCS: 99024 ==

== ENCOUNTER → 2022-07-19 09:11 | Outpatient (BNVA) | payer MEDICAID, SELFPAY | PROVIDERS: PCP Nurse Practitioner; Visit Provider Urology | DX: N50.812 Left testicular pain (principal); N39.9 Disorder of urinary system, unspecified; Z98.890 Other specified postprocedural states | CPT/HCPCS: 99024 ==

== ENCOUNTER → 2022-08-16 12:48 | Outpatient (BNVA) | payer MEDICAID, SELFPAY | PROVIDERS: PCP Nurse Practitioner; Visit Provider Internal Medicine Cardiovascular Disease | DX: I48.91 Unspecified atrial fibrillation (principal); I10 Essential (primary) hypertension; R60.9 Edema, unspecified; R06.02 Shortness of breath; F17.200 Nicotine dependence, unspecified, uncomplicated | CPT/HCPCS: 99214 ==

== ENCOUNTER → 2022-09-20 08:04 | Outpatient (BNVA) | payer MEDICAID, SELFPAY | PROVIDERS: PCP Nurse Practitioner; Visit Provider Nurse Practitioner | DX: I48.91 Unspecified atrial fibrillation (principal) | CPT/HCPCS: 93005 ==

== ENCOUNTER 2022-09-20 09:21 | Inpatient (IN) | payer MEDICARE, MEDICAID, SELFPAY ==
[2022-09-20] VITALS (34 sets, daily range): BP systolic 100–160; BP diastolic 65–91; PULSE 77–130; RESP 14–28; TEMP 36.5–37.1; O2SAT 93–98; BMI 29.2
--- NOTE | 2022-09-20 09:24 | XRR_ITS ---
PROCEDURE INFORMATION: Exam: XR Chest Exam date and time: 09/20/2022 9:33 AM Age: 71 years old Clinical indication: Angina pectoris; Chest pain TECHNIQUE: Imaging protocol: Radiologic exam of the chest. Views: 1 view. COMPARISON: No relevant prior studies available. FINDINGS: Lungs: No pulmonary vascular congestion or pulmonary edema. There is left basilar airspace disease favored to be due to atelectasis given an elevated left hemidiaphragm. Pleural spaces: No large pleural effusion. No pneumothorax. Heart/Mediastinum: The cardiac silhouette is not enlarged. The mediastinal contours are normal. Bones/joints: There are multilevel bridging osteophytes in the spine. Right glenohumeral joint degeneration. XR/XR chest 1V portable [id number] IMPRESSION: Favor left basilar atelectasis.
--- NOTE | 2022-09-20 09:25 | ECG_ITS ---
[facility] Test Date: 2022-09-20 Pat Name: Kyler Arciniega Department: Room: Gender: Male Paid Search Analyst: : [id number] Requested By: Stuart Jara Order Number: [id number] Sandra MD: Magdi Palacios M.D. Measurements Intervals [place] Rate: 135 P: 0 [place]: 0 QRS: 49 QRSD: 99 T: -61 QT: 298 QTc: 447 Interpretive Statements ATRIAL FIBRILLATION WITH RAPID VENTRICULAR RESPONSE INFERIOR MYOCARDIAL INFARCTION , PROBABLY RECENT [40+ ms Q WAVE AND/OR ST/T ABNORMALITY IN II/aVF] ACUTE IA Compared to ECG 06/25/2022 08:59:29 Myocardial infarct finding now present Sinus bradycardia no longer present First degree AV block no longer present Electronically Signed On 09-20-2022 20:41:51 REVIEW SPECIALIST by Magdi Palacios M.D. [id number]
--- NOTE | 2022-09-20 09:37 | ED_ITS ---
HPI - Arrhythmia/Palpitations General: Chief Complaint: Arrhythmia/Palpitations Stated Complaint: chest pain Time Seen by Provider: 09/20/22 09:34 Source: patient Mode of arrival: ambulatory History of Present Illness: 71-year-old male presents to the emergency room with rapid heart rate. He has a history of atrial fibrillation he states he was previously known to have A. fib when he was on anticoagulants he is still on carvedilol. This morning he went to [facility] his heart rate was rapid on arrival there and he was referred to the emergency room on further ambulance ride but he declined. He presents by private vehicle. He denies having any chest pain last night or this morning or currently on arrival here. He is having some mild shortness of breath last night and this morning. MD complaint: rapid heart beat, heart racing and skipped beats Onset (ago): minute(s) Duration: constant Severity: mild Arrhythmia history: atrial fibrillation Associated symptoms: Deny anxiety, cough, nausea or vomiting Review of Systems Const: Denies: fever(s), chills, body aches, change in appetite, fatigue or malaise ENMT: Denies: throat pain, ear or mastoid pain, nasal discharge or nasal congestion Card: Reports: palpitations and irregular heart rhythm; Denies: chest pain, edema, dyspnea on exertion or orthopnea Resp: Reports: dyspnea; Denies: productive cough or non-productive cough GI: Denies: abdominal pain, nausea, vomiting, hematemesis, coffee ground emesis, diarrhea, constipation, bloating, hematochezia or melena : Denies: flank pain, dysuria, urinary frequency or urinary urgency Skin/Breast: Denies: rash or pruritus Psych: Denies: anxiety PFSH ED PFSH: Medical History (Updated 09/20/22 @ 11:09 by Stuart Fang DO) Acute [place], inferior wall Atrial fibrillation CHF (congestive heart failure) History of hypertension Surgical History History of hip surgery left hip Status post left inguinal hernia repair (04/05/22) Status post right inguinal hernia repair Family History Father , in his 80's CAD (coronary artery disease), Onset Age: 85 [place] Grandfather Cancer Mother , at age 82 Stroke Denies family history of Diabetes Clotting disorder Dementia Chronic kidney disease (CKD) Suicide Anesthesia complication Bleeding disorder Lung disease Social History Smoking and tobacco status: current some day smoker Alcohol intake: current Alcohol intake frequency: few times a month Marital status: / Current occupational status: retired History of recent travel: No Physical Exam Const: COMMON NORMALS: no acute distress GENERAL APPEARANCE: cooperative and comfortable ORIENTATION/CONSCIOUSNESS: Yes awake, Yes oriented to person, Yes oriented to place and Yes oriented to time HENMT: COMMON NORMALS: normocephalic, atraumatic, hearing grossly normal bilaterally, external ears normal, EAC's normal, TM's normal bilaterally and Normal nasal mucous membranes and turbinates present HEAD & SCALP: normocephalic and atraumatic NOSE: Normal nasal mucous membranes and turbinates present EXTERNAL EAR: Yes external ears normal EXTERNAL AUDITORY CANAL: EAC's normal TYMPANIC MEMBRANE: TM's normal bilaterally Eye: COMMON NORMALS: Equal, round and reactive pupils present, EOMs intact bilaterally, conjunctivae normal and no scleral icterus CONJUNCTIVA: Yes conjunctivae normal PUPIL: Yes Equal, round and reactive pupils present Neck/C-Spine: COMMON NORMALS: full ROM, no lymphadenopathy, supple and no JVD Lymph: LYMPHATIC: no lymphadenopathy noted and no lymphedema noted Resp: COMMON NORMALS: normal respiratory effort, No retractions, No use of accessory muscles and clear to auscultation bilaterally AUSCULTATION: clear to auscultation bilaterally Cardio: COMMON NORMALS: no JVD, regular rate, regular rhythm and No murmurs present (Cardio) RATE: regular rate RHYTHM: regular rhythm GI: COMMON NORMALS: Soft to palpation and No hepatosplenomegaly present AUSCULTATION: Yes normoactive bowel sounds PALPATION: Yes Soft to palpation, No Tenderness to palpation present (GI), No Guarding due to palpation present (GI) and Yes No hepatosplenomegaly present Extremity: COMMON NORMALS: normal to inspection, capillary refill normal, no clubbing, cyanosis or edema, no calf tenderness and no pedal edema Neuro: SENSORIUM/ORIENTATION: Yes oriented to person, Yes oriented to place and Yes oriented to time Skin: COMMON NORMALS: no rashes or lesions noted GENERAL SKIN EXAM: no rashes or lesions noted Course Vital Signs: Vital signs: Vital Signs Temperature 97.7 F 09/20/22 09:30 Pulse Rate 124 H 09/20/22 09:30 Respiratory Rate 23 H 09/20/22 09:30 Blood Pressure 134/83 09/20/22 09:30 Pulse Oximetry 98 09/20/22 09:30 Oxygen Delivery Me thod 09/20/22 09:30 MDM - Arrhythmia/Palpitations Medical Decision Making Initial EKG does show some ST elevation in the inferior leads. However patient is adamant that he has no chest pain. After reviewing the x-rays and talking to the patient I reviewed the EKGs with Dr. Junior Leung recommended that initially we get troponins and monitor the patient. He did add later that he had some jaw discomfort when he first woke up this morning but that had resolved. His first troponin came back at 386 he is still pain-free at this time. With a result of the first troponin I immediately contacted Dr. Pacheco and repeated EKG his EKG actually looks less concerning than his initial EKG. Dr. Pacheco had already seen the first EKG and when we contacted about the troponin he presented directly to the emergency room. He is interviewed the patient himself and has decided to proceed to the Application Support Manager. Patient was given aspirin heparin and Plavix in the emergency room. He had also been given IV metoprolol and p.o. metoprolol in an effort to control his A. fib with RVR. There was no significant improvement and he was snacked started on amiodarone drip. Medical Records I reviewed the patient's medical records. Lab Data I reviewed the patient's lab results. 09/20/22 09:32 09/20/22 09:32 Laboratory Results WBC 6.3 10^3/uL (4.0-10.0) 09/20/22 09:32 RBC 4.81 10^6/uL (4.1-5.3) 09/20/22 09:32 Hgb 14.0 g/dL (11.7-16.6) 09/20/22 09:32 Hct 43.4 % (42.0-52.0) 09/20/22:32 MCV 90.2 fl (80-94) 09/20/22 09:32 MCH 29.1 pg (28.0-34.0) 09/20/22 09:32 MCHC 32.3 g/dL (30.0-36.0) 09/20/22 09:32 RDW 14.5 % (12.1-15.1) 09/20/22 09:32 Plt Count 222 10^3/cmm (130-400) 09/20/22 09:32 MPV 10.3 fL (7.4-10.4) 09/20/22 09:32 Neut % (Auto) 57.6 % 09/20/22 09:32 Lymph % (Auto) 32.1 % 09/20/22 09:32 [place] % (Auto) 9.2 % 09/20/22 09:32 Eos % (Auto) 0.6 % 09/20/22 09:32 Baso % (Auto) 0.3 % 09/20/22 09:32 Neut # (Auto) 3.65 10^3/uL (1.8-7.7) 09/20/22 09:32 Lymph # (Auto) 2.0 10^3/uL (0.8-4.8) 09/20/22 09:32 [place] # (Auto) 0.6 10^3/uL (0.2-0.9) 09/20/22 09:32 Eos # (Auto) 0.0 10^3/uL (0.0-0.8) 09/20/22 09:32 Baso # (Auto) 0.0 10^3/uL (0.0-0.1) 09/20/22 09:32 Nucleated RBC % (auto) 0 % 09/20/22 09:32 Nucleated RBCs # 0.0 /100WBC 09/20/22 09:32 Sodium 137 mmol/L (136-145) 09/20/22 09:32 Potassium 4.5 mmol/L (3.5-5.1) 09/20/22 09:32 Chloride 99 mmol/L (98-107) 09/20/22 09:32 Carbon Dioxide 28 mmol/L (22-29) 09/20/22 09:32 Anion Gap 14.5 (5-19) 09/20/22 09:32 BUN 10 mg/dL (8-23) 09/20/22 09:32 Creatinine 0.7 mg/dL (0.7-1.2) 09/20/22 09:32 GFR Calculation 111.5 mL/min (90-130) 09/20/22 09:32 Glucose 110 mg/dL (65-115) 09/20/22 09:32 Calculated Osmolality 284 mOsm/kg (285-295) L 09/20/22 09:32 Calcium 9.0 mg/dL (8.5-10.5) 09/20/22 09:32 Total Bilirubin 0.4 mg/dL (0.15-1.2) 09/20/22 09:32 AST 21 U/L (0-40) 09/20/22 09:32 ALT 13 U/L (0-41) 09/20/22 09:32 Alkaline Phosphatase 81 U/L (40-130) 09/20/22 09:32 Troponin T Baseline 386 ng/L (0-15) H* 09/20/22 09:32 Total Protein 6.9 g/dL (6.6-8.7) 09/20/22 09:32 Albumin 4.2 g/dL (3.5-5.2) 09/20/22 09:32 Globulin 2.7 g/dL (1.3-4.6) 09/20/22 09:32 Discharge Plan Discharge Patient Disposition: Admitted As Inpatient Clinical Impression: ACS (acute coronary syndrome), Atrial fibrillation with rapid ventricular response Condition: Stable Coding Level of Care Code ED Clarification Operator for Jaime Fwd Exam Detailed
[2022-09-20 09:38] LABS: Basophils % 0.3 %; Eosinophils % 0.6 %; Hematocrit 43.4 % (42.0-52.0); Lymphocytes % 32.1 %; Mean Corpuscular HGB Conc 32.3 g/dL (30.0-36.0); Mean Corpuscular Hemoglobin 29.1 pg (28.0-34.0); Mean Corpuscular Volume 90.2 fl (80-94); Mean Platelet Volume 10.3 fL (7.4-10.4); Monocytes # 0.6 10^3/uL (0.2-0.9); Monocytes % 9.2 %; Neutrophils # 3.65 10^3/uL (1.8-7.7); Neutrophils % 57.6 %; Nucleated Red Blood Cells % 0 %; Platelet Count 222 10^3/cmm (130-400); Red Blood Count 4.81 10^6/uL (4.1-5.3); Red Cell Distribution Width 14.5 % (12.1-15.1); White Blood Count 6.3 10^3/uL (4.0-10.0)
[2022-09-20] MEDS: metoprolol tartrate 1 mg/1 mL SDV 5 mL 5 MG IVP (09:44)
[2022-09-20] MEDS: metoprolol tartrate 25 mg Tablet PO ×2 (09:44→22:43)
[2022-09-20 10:04] LABS: Alanine Aminotransferase 13 U/L (0-41); Albumin Level 4.2 g/dL (3.5-5.2); Alkaline Phosphatase 81 U/L (40-130); Anion Gap 14.5 (5-19); Aspartate Amino Transferase 21 U/L (0-40); Blood Urea Nitrogen 10 mg/dL (8-23); Carbon Dioxide 28 mmol/L (22-29); Chloride 99 mmol/L (98-107); Globulin 2.7 g/dL (1.3-4.6); Glomerular Filtration Rate 111.5 mL/min (90-130); Glucose 110 mg/dL (65-115); Osmolality Calculated 284 mOsm/kg (285-295); Potassium 4.5 mmol/L (3.5-5.1); Sodium 137 mmol/L (136-145); Total Bilirubin 0.4 mg/dL (0.15-1.2); Total Protein 6.9 g/dL (6.6-8.7); Troponin(5th) Baseline 386 ng/L (0-15)
[2022-09-20] MEDS: heparin 5,000 unit/mL INJ 1 mL 4000 UNIT IVP (10:14)
[2022-09-20] MEDS: clopidogrel 300 mg Tablet 600 MG PO (10:14)
--- NOTE | 2022-09-20 10:14 | PC.PHAR ---
PT STATES HE TAKES CARE OF HIS OWN MEDICATIONS-PT STATES THE LAST TWO DAYS HE HAS BEEN TAKING CARVEDILOL 6.25MG DAILY BUT NORMALLY TAKES 12.5MG BID AND TODAY TOOK 2 OF THE 12.5MG TABS THIS AM-PT STATES THIS IS AN OLD RX OF HIS DOXYCYCLINE 100MG BID PT STATES BEEN TAKING FOR THE PAST 3 DAYS-PT STATES HE IS NO LONGER TAKING LOSARTAN 100MG DAILY FILLED 07/27/22 90D/S [facility] ER 20MEQ DAILY LAST FILLED 07/27/22 90D/S-
[2022-09-20] MEDS: aspirin 325 mg Tablet PO (10:17)
[2022-09-20] MEDS: sodium chloride 0.9% 500 ML 999 ML IV (10:17)
--- NOTE | 2022-09-20 10:26 | P.HP_ITS ---
Providers/Chief Complaint Admitting Physician: robin Primary Care Provider: Sloane Barnes APN Chief Complaint: chest pain History of Present Illness Kyler Arciniega is a 71 year old male with a history of atrial fibrillation but no history of coronary disease. He awoke about 3:00 this morning with mild shortness of breath. He initially denied any chest pain whatsoever. He states that he may have had little jaw discomfort. He felt palpitations. He has had atrial fibrillation in the past and aside to drive to the clinic and Y known at 8:00. They obtained an EKG and recommended he come here. Upon his arrival here his EKG revealed a heart rate of [address] fibrillation and ST segment elevation in leads II and aVF with some mild ST segment depression in leads V1 and V2. There is also mild ST segment elevation in leads V5 and V6 and ST depression in leads I and aVL. He initially did denied any discomfort to the emergency room physician. His first troponin came back over 300. I was then called to see him. Upon my arrival his heart rate is still [address] segments have for the most part come back to normal. He has T wave inversions in the inferior and lateral leads. He still does not have any chest pain. 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 He has a history of hypertension and atrial fibrillation. There is a questionable history of congestive heart failure. 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 He is a regular THC user. He also has had a hernia which was complicated by swelling and other difficulties. Ultimately he required an orchiectomy because of testicular problems. He has been given aspirin, Plavix, heparin and a beta-estefani for his heart rate here in the emergency room. Review of Systems Narrative: Is Medications/Allergies Home Medications Medication Instructions Recorded Confirmed Last Taken Type cholecalciferol (vitamin D3) 25 25 mcg PO QAM 09/20/21 09/20/22 06/24/22 History mcg (1,000 unit) capsule magnesium oxide 500 mg capsule 500 mg PO DAILY 09/20/21 09/20/22 06/24/22 History multivitamin 1 tab PO DAILY 09/20/21 09/20/22 06/24/22 History aspirin 81 mg tablet,delayed 81 mg PO QAM 07/19/22 09/20/2223 04:00 History release (Adult Low Dose Aspirin) carvedilol 12.5 mg tablet 12.5 mg PO BID #60 tabs 08/16/22 09/20/22 09/20/22 04:00 Rx 25mg-[facility] ascorbic acid (vitamin C) 500 mg 500 - 1,000 mg PO .UP TO TWICE A 09/20/22 09/20/22 Unknown History chewable tablet (Vitamin C) DAY doxycycline hyclate 100 mg capsule 100 mg PO BID 09/20/22 09/20/22 09/19/22 H istory OLD RX BEEN TAKING 3 zinc acetate 50 mg (zinc) capsule 50 mg PO DAILY 09/20/22 09/20/22 Unknown History Allergies Allergy/AdvReac Type Severity Reaction Status Date / Time No Known Allergies Allergy Verified 09/20/22 10:08 PFSH Acute PFSH: Medical History (Updated 09/20/22 @ 10:32 by Marcus Pacheco MD) Acute NM, inferior wall Atrial fibrillation CHF (congestive heart failure) History of hypertension Surgical History History of hip surgery left hip Status post left inguinal hernia repair (04/05/22) Status post right inguinal hernia repair Family History Father , in his 80's CAD (coronary artery disease), Onset Age: 85 NM Grandfather Cancer Mother , at age 82 Stroke Denies family history of Diabetes Clotting disorder Dementia Chronic kidney disease (CKD) Suicide Anesthesia complication Bleeding disorder Lung disease Social History Smoking and tobacco status: current some day smoker Alcohol intake: current Alcohol intake frequency: few times a month Marital status: / Current occupational status: retired History of recent travel: No Vitals/I&O/Wt Last Vital Signs Temp 97.7 F 09/20/22 09:30 Pulse 124 H 09/20/22 09:30 Resp 23 H 09/20/22 09:30 BP 134/83 09/20/22 09:30 Pulse Ox 98 09/20/22 09:30 O2 Del Method 09/20/22 09:30 Weight last 48 hrs Weight 210 lb Physical Exam Narrative: GENERAL: In general he appears comfortable and is not in any distress at all. HEENT: Exam within normal limits. NECK: Supple without jugular vein distention. The carotid upstroke is normal without bruits. BACK: Exam normal. LUNGS: Clear. HEART: Irregularly irregular with tachycardia ABDOMEN: Benign without organomegaly or tenderness. EXTREMITIES: No edema. NEUROLOGIC: Exam normal. SKIN: Unremarkable. Data 09/20/22 09:32 09/20/22 09:32 A&P Assessment and plan (1) Cannabis abuse: (2) Atrial fibrillation by electrocardiogram: (3) Inguinal hernia: (4) Essential hypertension: (5) Testicular pain, left: (6) Acute NM, inferior wall: Plan I think the infarct is probably 6 or 7 hours old. His STs are coming down and is not having any pain. He will need angiography at some point. We will plan to proceed now. He has had the appropriate medications. I have spoken to him about the risks and benefits. Attestations Medical Necessity Statement*: Hospitalization required for management of A. fib and acute NM Coding Level of Care Code New Pt Acute Fire Equipment Inspector Helper for Chg Fwd Patient Type New History Detailed Exam Detailed Medical Decision Making Moderate Complexity Diagnoses Cannabis abuse F12.10 Atrial fibrillation by electrocardiogram I48.91 Inguinal hernia K40.90 Essential hypertension I10 Testicular pain, left N50.812 Acute NM, inferior wall I21.19
--- NOTE | 2022-09-20 10:28 | PC.NURSE ---
PT PLACED ON CONTINUOUS NIBP, SPO2, AND CM
--- NOTE | 2022-09-20 10:30 | XACV_ITS ---
Exam Room: ED.ROOM10 Ht: 180 cm Wt: 95 kg BSA: 2.21 m2 Gender: Male : 1950 Any Known Allergies: No known allergies Exam Priority: Routine Procedure(s): Procedure Description: Diagnostic procedure Procedure Description: Left Heart Catheterization Procedure Description: Left ventriculography Procedure Description: Coronary Angiography Diagnostic Cath Status: Emergency Diagnostic Findings * Patient presented with atrial fibrillation and without any chest pain. Initial EKG showed ST elevation inferiorly with subsequent EKG showing the ST segments were normal. Initial troponin over 300. * Coronary angiography reveals right coronary artery dominance. The left main coronary artery is normal and bifurcates into left anterior descending and circumflex coronary arteries. There are diffuse luminal irregularities in both vessels but no significant stenoses. The LAD provides collateral flow to the distal right. The right coronary artery is occluded just at its origin. Several attempts at angioplasty were made. I used 2 guides and 3 different wires and was never able to get past the occlusion. This suggests that it is more subacute than acute. Conclusions 1. Subacute occlusion of the right coronary artery resulting in inferior wall myocardial infarction. Recommendations * Medical treatment. Interventional RX Recommendation: medical therapy and/or counseling Diagnostic RX Recommendation: medical therapy and/or counseling Anticoagulation: Heparin Ventriculography Ejection Fraction: 40.0 % Pressures Phase:Rest AO : 87 / 63 ( 70 ) @ 11:02:00 AM 84 / 65 ( 71 ) @ 11:07:00 AM 92 / 72 ( 77 ) @ 11:19:00 AM 83 / 66 ( 73 ) @ 11:25:00 AM 101 / 67 ( 82 ) @ 11:31:00 AM 104 / 69 ( 82 ) @ 11:32:00 AM LV : 110 / 1 / 9 @ 11:30:00 AM 108 / 0 / 9 @ 11:31:00 AM 102 / 1 / 4 @ 11:31:00 AM Valves Phase:DefaultPhase AV : 3.0 @ 11:43:15 AM 3.0 @ 11:43:15 AM AV Mean Gradient: 13.0 @ 11:43:15 AM 13.0 @ 11:43:15 AM Clinical Evaluation EBL: 5mL-10mL Procedural Details Pre-Procedure Time Out. Identified patient by full name and date of as verbalized by the patient/guarantor. Does the consent match the physician's order: N/A Emergent. Accurate & Complete Informed Consent: N/A Emergent. Inpatient/Outpatient History & Physical on Chart: N/A Emergent. If H&P is completed, is and addenduem needed: N/A Emergent; If yes, is the addendum complete: N/A Emergent. Visualize and Verify Site with Patient/Guarantor: N/A. Relevant Radiology Images available: N/A Emergent. Pre-op teaching completed and patient verbalized understanding. The risks, benefits, and alternatives of sedation and/or procedure were discussed by physician. The patient agrees to continue. Procedure started. [facility] Clinical Fraility Score: 3: Managing Well. Soundscriber Mechanic Indications: ACS <= 24 hours. Chest Pain Symptom Assessment: Typical Angina Symptoms. Cardiovascular Instability: Yes, if yes, Persistant Ischemic Symptoms. Correct patient, site and procedure confirmed by cath team. Current diagnosis: STEMI. PERRLA. Strong, equal hand heavy duty custodian bilaterally. Lungs clear x 5 lobes. IV Site on Arrival: 18 gauge in the right anticubital. IV Fluids: 0.9% NaCl at KVO. 100 mL infused prior to medical laboratory technicians. Pre Procedural Pulses: right radial was 1+. Oxygen started at 2liters/min via nasal canula. right groin was prepped with chloroprep then draped in the usual sterile fashion. right radial was prepped with chloroprep then draped in the usual sterile fashion. Physician notified. Equipment: 6F - Radial. Cardiac Cath Pack. ACIST Manifold Kit Model BT 2000. Heparinized Saline (2 units/mL), 1000 mL bag. Patient's family unavailable. Physician arrived. Baseline sample Acquired. HR: 119 BPM. Current Diagnosis : STEMI. Physician scrubbed in. Immediate Pre-Procedure Time Out. Correct Patient: Yes; Correct Procedure: Yes; Correct Site: Yes; Correct Patient Position: Yes; Correct Supplies: Yes; Dried Flammable Prep: Yes; Blood Products Available: N/A;. Lidocaine 1% infiltrated to the right radial. Unable to obtain radial access. MD attempting to gain access in the Femoral artery. Kari Rivera RN, DIRECTOR GIFT was relieved by RT Verna(R) as monitoring person. Lidocaine 1% infiltrated to the right groin. Arterial access obtained. 6 saudi arabian JR 4 guide catheter was inserted over the wire. Calhoun guidewire was advanced through the guide catheter to lesion in the prox RCA. PCI Indication: STEMI. Wire out. Runthrough guidewire was advanced through the guide catheter to lesion in the prox RCA. Wire out. Fielder XT guidewire was advanced through the guide catheter to lesion in the prox RCA. Wire out. Guide catheter out. 6 saudi arabian JL 4 guide catheter was inserted over the wire. Multiple views taken of left coronary artery. Catheter out. RT Veran(R) was relieved by Kari Rivera RN, DIRECTOR GIFT as monitoring person. A 5 saudi arabian Angled Pig catheter in over wire the standard J wire. EDP Sample taken: LV 110/1,9; HR: 101 BPM; SpO2: 100%. LV gram performed in MALLORY @ 10 mL/second for a total of 30 mL. EDP Sample taken: LV 108/0,9; HR: 102 BPM; SpO2: 100%. Pullback taken: LV 102/1,4; AO 101/67(82); Mean: 13mmHg, Peak to Peak: 3mmHg, SEP: 10sec/min; HR: 106 BPM; SpO2: 99%. Catheter out. Dr Pacheco scrubbed out. A Suture was successful obtaining hemostatsis at the Right Femoral artery insertion site. TR band placed. Hemostasis obtained. Post Procedure: Pulses reassessed and unchanged. PERRLA. Strong, equal hand heavy duty custodian bilaterally. No VTE prophylaxis required. Medication's Wasted: Heparin = 2000 units. Total IV fluids: 50 mL. Post Procedure: bilateral dorsalis pedis pulse Doppled. Post Procedure: bilateral posterior tibial pulse Doppled. Post Procedure: right radial pulse 1+. Post-op diagnosis: Sub acute inferior wall AL. Complications: none. Estimated blood loss: 5mL-10mL. Responsiveness - Normal response to verbal stimuli; alert and oriented, PERRLA. Airway - Unaffected, no intervention required; spontaneous ventilation. Circulation: W/N/L, pulses unchanged. Nausea/Vomiting: No. Procedure completed. Patient transferred by bed to 1st floor. Vital chart was stopped. Access Site Site: Right Femoral artery Sheath Size: 6 Fr Hemostasis Method: Suture Hemostasis Success: Successful Procedure Medications Start: 10:44 AM Stop: 10:44 AM Medication: Versed Amount: 2 mg Route: I.V. Start: 10:44 AM Stop: 10:44 AM Medication: Fentanyl Amount: 25 mcg Route: I.V. Start: 11:05 AM Stop: 11:05 AM Medication: Fentanyl Amount: 50 mcg Route: I.V. Start: 11:05 AM Stop: 11:05 AM Medication: Heparin Amount: 2000 units Route: I.V. Start: 11:16 AM Stop: 11:16 AM Medication: Fentanyl Amount: 25 mcg Route: I.V. I, the attending physician, have reviewed and verified all procedure medications. Yes, all medications given per verbal order History/Risk Factors Hypertension: No Dyslipidemia: No Peripheral Arterial Disease (PAD): No Myocardial Infarction (AL): No Obesity: No Renal Disease: No Prior Interventions PCI: No CABG: No Valve Surgery: No Report Signatures Finalized by Dr. Marcus Pacheco MD on 09/20/2022 03:38 PM
--- NOTE | 2022-09-20 10:36 | PC.NURSE ---
GLASS CLEANER TEAM ARRIVED TO TAKE OVER CARE OF PT. PT XFER TO GLASS CLEANER. BEDSIDE REPORT GIVEN TO GLASS CLEANER TEAM PRIOR TO XFER. IVS INTACT. PT IN GOWN. ALLERGY BAND AND ID BAND INTACT.
--- NOTE | 2022-09-20 11:25 | ECG_ITS ---
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 Measurements Intervals [place] Rate: 127 P: 0 AL: 0 QRS: 56 QRSD: 102 T: -59 QT: 293 QTc: 427 Interpretive Statements ATRIAL FIBRILLATION WITH RAPID VENTRICULAR RESPONSE ST DEVIATION AND MODERATE T-WAVE ABNORMALITY, CONSIDER LATERAL ISCHEMIA [-0.1+ mV T-WAVE IN I/aVL/V5/V6] ST DEVIATION AND MODERATE T-WAVE ABNORMALITY, CONSIDER INFERIOR ISCHEMIA [-0.1+ mV T-WAVE IN II/aVF] Compared to ECG 09/20/2022 09:30:06 T-wave abnormality now present Possible ischemia now present Myocardial infarct finding no longer present Electronically Signed On 09-20-2022 20:48:25 OFFSET LITHOGRAPHIC PRESS OPERATOR by Magdi Palacios M.D. [id number]
[2022-09-20 14:36] LABS: Partial Thromboplastin Time 34.2 SECONDS (23.9-36.7)
[2022-09-20 14:40] LABS: Troponin 5 6HR 650.7 ng/L (0-15); Troponin 5 6HR Delta 264.7 ng/L (0-12)
[2022-09-20] MEDS: fentaNYL 50 mcg/mL INJ 2mL IVP (15:19)
--- NOTE | 2022-09-20 15:25 | ECG_ITS ---
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 Measurements Intervals [place] Rate: 118 P: 0 [place]: 0 QRS: 28 QRSD: 109 T: -59 QT: 323 QTc: 454 Interpretive Statements ATRIAL FIBRILLATION WITH RAPID VENTRICULAR RESPONSE INFERIOR MYOCARDIAL INFARCTION , OF INDETERMINATE AGE [40+ ms Q WAVE AND/OR ST/T ABNORMALITY IN II/aVF] MODERATE T-WAVE ABNORMALITY, CONSIDER LATERAL ISCHEMIA [-0.1+ mV T-WAVE IN I/aVL/V5/V6] Compared to ECG 09/20/2022 10:10:33 Myocardial infarct finding now present T-wave abnormality still present Possible ischemia still present Electronically Signed On 09-20-2022 20:50:25 SAWMILL MOULDER OPERATOR by Magdi Palacios M.D. [id number]
--- NOTE | 2022-09-20 16:21 | PC.NURSE ---
Cardiac sheath pulled from right groin at approximately 1535. Femoral pulse found with Doppler. Pt education was given. Pt verbalized understanding. Pressure was held on site for 20 minutes after pull. Drsg placed on site. No hematoma, swelling or bleeding noted. Drsg dry and intact. Pt tolerated well. Pt had no c/o pain or discomfort at the present time. VS stable. Will cont to monitor.
[2022-09-20] MEDS: metoprolol tartrate 50 mg Tablet PO (17:41)
[2022-09-20] MEDS: doxycycline 100 mg Tablet PO (17:41)
[2022-09-20] MEDS: temazepam 15 mg Capsule PO (22:45)
[2022-09-21] VITALS (28 sets, daily range): BP systolic 94–126; BP diastolic 59–95; PULSE 84–135; RESP 6–27; TEMP 36.1–37.2; O2SAT 94–97
[2022-09-21] MEDS: aspirin 81 mg EC Tablet PO (06:03)
[2022-09-21] MEDS: cholecalciferol (vitamin D3) 1,000 unit Tablet 1000 UNIT PO (06:03)
--- NOTE | 2022-09-21 08:10 | P.PN_ITS ---
Subjective Subjective: Patient presented yesterday morning with a subacute inferior wall [place]. I worked for quite some time to open the right coronary artery but was unsuccessful. He has collateral flow from the left system. Ejection fraction is about 40% with akinesis/dyskinesis of the inferior base. He has had no fu rther cardiac symptoms. He remains in atrial fibrillation however with a rapid ventricular response. I held his Coreg yesterday and put him on metoprolol. His rate is still anywhere from 120-145 today. No chest pain. No evidence of heart failure. His 6-hour troponin was 650. This is relatively small given the size of the right coronary artery. This suggests that the artery was closed longer than just a few hours. It also explains my inability to pass a wire through the occlusion. Vitals/I&O/Wt Last Vital Signs Temp 98.6 F 09/21/22 08:02 Pulse 135 H 09/21/22 08:02 Resp 17 09/21/22 08:02 BP 110/84 09/21/22 08:02 Pulse Ox 97 09/21/22 08:02 O2 Del Method 09/21/22 08:02 09/20/22 09/21/22 09/21/22 22:59 06:59 14:59 Intake Total 360 / 860 240 / 1100 Output Total 700 / 700 425 / 1125 Balance -340 / 160 -185 / -25 Weight last 48 hrs Weight 210 lb Physical Exam Narrative: GENERAL: In general he looks and feels well. HEENT: Exam within normal limits. NECK: Supple without jugular vein distention. The carotid upstroke is normal without bruits. BACK: Exam normal. LUNGS: Clear. HEART: Irregular rate and rhythm. Tachycardia ABDOMEN: Benign without organomegaly or tenderness. EXTREMITIES: No edema. NEUROLOGIC: Exam normal. SKIN: Unremarkable. Data 09/20/22 09:32 09/20/22 09:32 A&P Assessment and plan (1) ACS (acute coronary syndrome): (2) Atrial fibrillation with rapid ventricular response: (3) Essential hypertension: (4) CAD (coronary artery disease): (5) History of inferior wall myocardial infarction: Plan I need to anticoagulate him and get his heart rate under control. He is anxious to go home. He drove himself here. I am going to start Eliquis and increase the beta-estefani dose. Add a statin. Attestations Medical Necessity Statement*: Needs continued hospitalization for management of an inferior wall [place] and atrial fibrillation. Coding Level of Care Code Established Pt Acute Code for Chg Fwd Patient Type Established History Detailed Exam Detailed Medical Decision Making Moderate Complexity Diagnoses ACS (acute coronary syndrome) I24.9 Atrial fibrillation with rapid ventricular response I48.91 Essential hypertension I10 CAD (coronary artery disease) I25.10 History of inferior wall myocardial infarction I25.2
[2022-09-21] MEDS: metoprolol tartrate 50 mg Tablet 100 MG PO ×2 (08:37→20:20)
[2022-09-21] MEDS: apixaban 5 mg Tablet PO ×2 (08:38→20:20)
[2022-09-21] MEDS: doxycycline 100 mg Tablet PO ×2 (08:38→17:24)
[2022-09-21] MEDS: multivitamin therapeutic Tablet 1 TAB PO (08:39)
[2022-09-21] MEDS: magnesium oxide 400 mg tablet PO (09:08)
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
--- NOTE | 2022-09-21 13:04 | PC.NURSE ---
pt would like meds to bed upon discharge he got informed that we offer meds to bed in the hospital upon discharge. pt has medicare/medicaid insurance.
[2022-09-21] MEDS: dilTIAZem 5 mg/mL SDV 5 mL 20 MG IVP (13:44)
[2022-09-21] MEDS: dilTIAZem 100 MG in sodium chloride 0.9% (add-van) 100 ML IV (13:45)
--- NOTE | 2022-09-21 15:17 | PC.NURSE ---
Pt turned off his cardizem drip checked on pt and noticed his cardizem drip was turned off. pt stated, the machine was beeping and he thought the call light was not working in the bed. pt call light is at bedside and checked it and it was working properly. educated pt not to turned off his cardizem drip by himself. and to use the call light instead and not the call button in his bed. pt verbalizes understanding.
[2022-09-21] MEDS: temazepam 15 mg Capsule PO (20:20)
[2022-09-22] VITALS (48 sets, daily range): BP systolic 94–117; BP diastolic 69–77; PULSE 82–131; RESP 0–33; TEMP 36.5; O2SAT 95
[2022-09-22] MEDS: dilTIAZem 100 MG in sodium chloride 0.9% (add-van) 100 ML 7.5 MG IV (01:43)
[2022-09-22] MEDS: aspirin 81 mg EC Tablet PO (06:10)
[2022-09-22] MEDS: cholecalciferol (vitamin D3) 1,000 unit Tablet 1000 UNIT PO (06:10)
[2022-09-22] MEDS: multivitamin therapeutic Tablet 1 TAB PO (08:59)
[2022-09-22] MEDS: doxycycline 100 mg Tablet PO (08:59)
[2022-09-22] MEDS: magnesium oxide 400 mg tablet PO (09:00)
[2022-09-22] MEDS: metoprolol tartrate 50 mg Tablet 100 MG PO (09:00)
[2022-09-22] MEDS: apixaban 5 mg Tablet PO (09:00)
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
--- NOTE | 2022-09-22 11:28 | PC.NURSE ---
discharge instructions given and explained.pt verb understanding of instructions.discharged via w/c to car.pt to drive himself home.
== END 2022-09-22 11:29 | disposition home or self-care (01) | DRG 282 ==
LOC: ER 09:42 → CCL 10:35 → CSU 12:30
PROVIDERS: Admitting Provider Internal Medicine Cardiovascular Disease; Emergency Provider Family Medicine; PCP Nurse Practitioner; Visit Provider Internal Medicine Cardiovascular Disease
PROC: 4A023N7 Measurement of Cardiac Sampling and Pressure, Left Heart, Percutaneous Approach (ICD-10-PCS; principal; 2022-09-20 11:00)
DX: I21.11 ST elevation (STEMI) myocardial infarction involving right coronary artery (principal); I48.91 Unspecified atrial fibrillation; Z79.82 Long term (current) use of aspirin; S71.132D Puncture wound without foreign body, left thigh, subsequent encounter; W34.00XD Accidental discharge from unspecified firearms or gun, subsequent encounter; I10 Essential (primary) hypertension; F12.10 Cannabis abuse, uncomplicated; Z90.79 Acquired absence of other genital organ(s); F17.200 Nicotine dependence, unspecified, uncomplicated
CPT/HCPCS: 71045; 80053; 84484; 85025; 85730; 93005; 93458; 96365; 96366; 96375; 99152; 99153; 99285; C1769; C1887; C1894; J1644; J2250; J3010; J3490; J7040; Q9967

== ENCOUNTER → 2022-10-11 08:12 | Outpatient (BNVA) | payer MEDICAID, SELFPAY | PROVIDERS: PCP Nurse Practitioner; Visit Provider Nurse Practitioner Family | DX: I25.10 Atherosclerotic heart disease of native coronary artery without angina pectoris (principal); I48.91 Unspecified atrial fibrillation; Z79.01 Long term (current) use of anticoagulants; F17.200 Nicotine dependence, unspecified, uncomplicated; I25.2 Old myocardial infarction; I10 Essential (primary) hypertension | CPT/HCPCS: 36415; 80048; 85610; 93005; 99214 ==

== ENCOUNTER → 2022-11-06 08:33 | Outpatient (BNVA) | payer MEDICAID, SELFPAY | PROVIDERS: PCP Nurse Practitioner; Visit Provider Internal Medicine Cardiovascular Disease | DX: Z79.01 Long term (current) use of anticoagulants (principal) | CPT/HCPCS: 85610 ==

== ENCOUNTER → 2022-11-22 09:28 | Outpatient (BNVA) | payer MEDICAID, SELFPAY | PROVIDERS: PCP Nurse Practitioner; Visit Provider Internal Medicine Cardiovascular Disease | DX: Z79.01 Long term (current) use of anticoagulants (principal) | CPT/HCPCS: 85610 ==

== ENCOUNTER → 2022-12-14 14:39 | Outpatient (BNVA) | payer MEDICAID, SELFPAY | PROVIDERS: PCP Nurse Practitioner; Visit Provider Internal Medicine Cardiovascular Disease | DX: Z79.01 Long term (current) use of anticoagulants (principal) | CPT/HCPCS: 85610 ==

== ENCOUNTER → 2023-01-01 09:55 | Outpatient (BNVA) | payer MEDICAID, SELFPAY | PROVIDERS: PCP Nurse Practitioner; Visit Provider Internal Medicine Cardiovascular Disease | DX: Z79.01 Long term (current) use of anticoagulants (principal) | CPT/HCPCS: 85610 ==

== ENCOUNTER → 2023-01-11 12:32 | Outpatient (BNVA) | payer MEDICAID, SELFPAY | PROVIDERS: PCP Nurse Practitioner; Visit Provider Nurse Practitioner | DX: I48.91 Unspecified atrial fibrillation (principal); Z79.01 Long term (current) use of anticoagulants | CPT/HCPCS: 85610 ==

== ENCOUNTER → 2023-02-22 10:46 | Outpatient (BNVA) | payer MEDICAID, SELFPAY | PROVIDERS: PCP Nurse Practitioner; Visit Provider Internal Medicine Cardiovascular Disease | DX: I48.91 Unspecified atrial fibrillation (principal); Z79.01 Long term (current) use of anticoagulants; I25.2 Old myocardial infarction; I25.10 Atherosclerotic heart disease of native coronary artery without angina pectoris; I10 Essential (primary) hypertension; F17.200 Nicotine dependence, unspecified, uncomplicated | CPT/HCPCS: 85610; 99214 ==

== ENCOUNTER → 2023-03-05 08:38 | Outpatient (BNVA) | payer MEDICAID, SELFPAY | PROVIDERS: PCP Nurse Practitioner; Visit Provider Internal Medicine Cardiovascular Disease | DX: Z79.01 Long term (current) use of anticoagulants (principal) | CPT/HCPCS: 85610 ==

== ENCOUNTER → 2023-03-19 15:42 | Outpatient (BNVA) | payer MEDICAID, SELFPAY | PROVIDERS: PCP Nurse Practitioner; Visit Provider Nurse Practitioner | DX: Z79.01 Long term (current) use of anticoagulants (principal) | CPT/HCPCS: 85610 ==

== ENCOUNTER → 2023-03-26 11:59 | Outpatient (BNVA) | payer MEDICAID, SELFPAY | PROVIDERS: PCP Nurse Practitioner; Visit Provider Internal Medicine Cardiovascular Disease | DX: I25.2 Old myocardial infarction (principal); I25.10 Atherosclerotic heart disease of native coronary artery without angina pectoris; Z79.01 Long term (current) use of anticoagulants; I48.91 Unspecified atrial fibrillation; I10 Essential (primary) hypertension; F17.200 Nicotine dependence, unspecified, uncomplicated | CPT/HCPCS: 99213 ==

== ENCOUNTER → 2023-04-09 14:36 | Outpatient (BNVA) | payer MEDICAID, SELFPAY | PROVIDERS: PCP Nurse Practitioner; Visit Provider Internal Medicine Cardiovascular Disease | DX: Z79.01 Long term (current) use of anticoagulants (principal) | CPT/HCPCS: 85610 ==

== ENCOUNTER → 2023-05-02 12:45 | Outpatient (BNVA) | payer MEDICAID, SELFPAY | PROVIDERS: PCP Nurse Practitioner; Visit Provider Nurse Practitioner Family | DX: I25.10 Atherosclerotic heart disease of native coronary artery without angina pectoris (principal); I10 Essential (primary) hypertension; I48.91 Unspecified atrial fibrillation; F17.200 Nicotine dependence, unspecified, uncomplicated; Z79.01 Long term (current) use of anticoagulants | CPT/HCPCS: 99214 ==

== ENCOUNTER → 2023-06-13 10:56 | Outpatient (BNVA) | payer MEDICAID, SELFPAY | PROVIDERS: PCP Nurse Practitioner; Visit Provider Internal Medicine Cardiovascular Disease | DX: I48.91 Unspecified atrial fibrillation (principal); I25.10 Atherosclerotic heart disease of native coronary artery without angina pectoris; I25.2 Old myocardial infarction; Z79.82 Long term (current) use of aspirin; F17.200 Nicotine dependence, unspecified, uncomplicated; I11.0 Hypertensive heart disease with heart failure; I50.9 Heart failure, unspecified | CPT/HCPCS: 99214 ==